=== PATIENT | male | born 1960 | race African-American/Black ===

== ENCOUNTER 2021-05-26 21:34 | Inpatient (IN) | payer MEDICAID, SELFPAY ==
--- NOTE | ~2021-05-26 | CT_ITS ---
EXAMINATION: CT CHEST WITHOUT CONTRAST CT ABDOMEN AND PELVIS WITHOUT CONTRAST CLINICAL INFORMATION: Shortness of breath. Abdominal discomfort. COMPARISON: No pertinent prior studies are available for comparison. TECHNIQUE: Multidetector volumetric imaging was performed from the thoracic inlet through the pubic symphysis without intravenous contrast. Sagittal and coronal images were reformatted. This CT examination was performed using dose optimization techniques as appropriate, variously including the following: *Automated exposure control *Adjustment of mA and/or kV according to patient size (this includes techniques or standardized protocols for targeted exams where dose is matched to indication/reason for exam; i.e. extremities or head) *Use of iterative reconstruction technique DOSE: 544 mGy-cm FINDINGS: -CHEST- LUNG: Interlobular septal thickening is evident throughout both lungs with an apical and basilar predominance, most consistent with interstitial edema. Subtle, patchy areas of groundglass attenuation throughout both lungs correlate with mild pulmonary edema. Central airways are clear. No dense airspace consolidation. No suspicious pulmonary nodules. There is a calcified granuloma in the left lower lobe. MEDIASTINUM: Heart is enlarged. Multiple calcified mediastinal lymph nodes are consistent with a history of granulomatous infection. Thyroid gland is normal. No adenopathy. PERICARDIUM/PLEURA: Trace right pleural effusion. No pneumothorax. CHEST WALL/AXILLA: Unremarkable. -ABDOMEN/PELVIS- LIVER, GALLBLADDER, BILIARY TREE: The liver is normal in size, shape, and attenuation. No focal hepatic lesion or biliary ductal dilatation is present. The gallbladder is unremarkable with no evidence of radiopaque gallstones, gallbladder wall thickening, or obvious pericholecystic inflammatory changes. PANCREAS: Normal; no mass or surrounding fluid. SPLEEN: Normal size. No focal lesion. ADRENAL GLANDS: Normal; no mass. KIDNEYS AND URETERS: The kidneys are normal in size, shape, and attenuation. No hydronephrosis, hydroureter, or calculi seen. No perinephric stranding. BLADDER: Mild bladder wall thickening. No calcifications or fat stranding. GASTROINTESTINAL TRACT: Stomach, small bowel, and colon are normal in caliber. No bowel wall thickening or surrounding inflammatory changes. Appendix is normal. No intraperitoneal free fluid or free air. ABDOMINAL WALL: No significant hernia is appreciated. VASCULATURE: Aorta is normal in size. No significant calcific atherosclerotic disease. LYMPH NODES: No lymphadenopathy. . PELVIC VISCERA: Prostate gland is enlarged, measuring 5 cm transverse. OSSEUS STRUCTURES: Multilevel degenerative disc disease most notable at L5-S1 with facet arthropathy. No fractures. No spondylolisthesis. Vertebral body heights are normal. There is moderate osteoarthritis in the right hip and more mild to moderate osteoarthritis the left hip. Ankylosis is evident at the right SI joint. CT/CT abdomen pelvis wo con IMPRESSION: 1. Cardiomegaly with pulmonary interstitial edema and a trace right pleural effusion, most consistent with CHF. 2. Prostatomegaly. Mild bladder wall thickening could be due to hypertrophy from chronic bladder obstruction or inflammation, as well as cystitis. Consider correlation with urinalysis. Otherwise, no acute intra-abdominal or intrapelvic abnormalities are identified.
--- NOTE | ~2021-05-26 | CT_ITS ---
PROCEDURE: CT-GUIDED BIOPSY, KIDNEY CLINICAL INFORMATION: Acute versus chronic kidney disease. Hypertension. COMPARISON: Previous CT of the abdomen and ultrasound of the kidneys May 2021. TECHNIQUE: Procedure and risks and benefits including bleeding, infection and injury to the kidney were discussed with the patient and informed consent was obtained. The patient was positioned in the prone position. The right flank was prepped and draped in the usual sterile fashion. The skin and soft tissues were anesthetized with 1% lidocaine plain. With CT guidance and a coaxial system, access to the lower pole of the right kidney was obtained. Two 18 gauge core biopsies were obtained. Patient received Versed 2 mg and fentanyl 100 mcg intravenously during the procedure. Total sedation time was [address] examination was performed using dose optimization techniques as appropriate, variously including the following: *Automated exposure control *Adjustment of mA and/or kV according to patient size (this includes techniques or standardized protocols for targeted exams where dose is matched to indication/reason for exam; i.e. extremities or head) *Use of iterative reconstruction technique DLP: 213 mGy-cm FINDINGS: Images demonstrate needle placement in the lower pole of the right kidney. There is a small perinephric hematoma that remained stable on serial images. CT/CT biopsy renal RT IMPRESSION: CT-guided right renal biopsy.
--- NOTE | ~2021-05-26 | US_ITS ---
EXAMINATION: US RENAL ARTERY DOPPLER CLINICAL INFORMATION: Renal artery stenosis. COMPARISON: CT chest, abdomen and pelvis on 05/27/2021. TECHNIQUE: Renal ultrasound. Doppler ultrasound (spectral analysis and color Doppler) of the renal arteries and aorta were performed. Examination is slightly limited as the patient is in ICU, unable to easily position and overlying bowel gas. FINDINGS: The right kidney measures 10.7 x 3.4 x 5.9 cm in sagittal, AP and transverse dimensions. The left kidney measures 9.1 x 4.6 x 5.6 cm in sagittal, AP and transverse dimensions. The kidneys show no masses, calculi or hydronephrosis. The corticomedullary differentiation is normal. RENAL ARTERY VELOCITIES: Right: Proximal: 56 cm/s. Mid: 57 cm/s. Distal: 52 cm/s. Left: Proximal: Not visualized due to bowel gas and patient positioning. Mid: 47 cm/s. Distal: 49 cm/s. SEGMENTAL RESISTIVE INDICES: Right: Upper: 0.8. Mid: 0.7. Lower: 0.7. Left: Upper: Not visualized due to bowel gas and patient positioning. Mid: 0.7. Lower: 0.8. Mid aortic velocity: 97 cm/s. Renal Aortic Ratio: Right: 0.6. Left: 0.5. US/US renal doppler IMPRESSION: 1. The kidneys are unremarkable in appearance. 2. There is no evidence of renal artery stenosis. 3. The proximal left renal artery is not well visualized.
--- NOTE | ~2021-05-26 | CT_ITS ---
EXAMINATION: CT ABDOMEN AND PELVIS WITHOUT CONTRAST CLINICAL INFORMATION: Hematocrit drop post renal biopsy. COMPARISON: Previous CT of the abdomen and pelvis 05/27/[address] biopsy 05/29/2021. TECHNIQUE: Multidetector volumetric imaging was performed from the superior aspect of the liver through the pubic symphysis. Sagittal and coronal reformatted images were obtained on the technologist's workstation. This CT examination was performed using dose optimization techniques as appropriate, variously including the following: *Automated exposure control *Adjustment of mA and/or kV according to patient size (this includes techniques or standardized protocols for targeted exams where dose is matched to indication/reason for exam; i.e. extremities or head) *Use of iterative reconstruction technique DLP: 379 mGy-cm FINDINGS: LUNG BASES: The heart is enlarged. There is bibasilar subsegmental atelectasis. There are small bilateral pleural effusions. There is a 5 mm calcified left lower lobe nodule. LIVER, GALLBLADDER, AND BILIARY TREE: The liver is normal in size, shape, and attenuation. No focal hepatic lesion or biliary ductal dilatation is present. The gallbladder is unremarkable with no evidence of radiopaque gallstones, gallbladder wall thickening, or obvious pericholecystic inflammatory changes. PANCREAS: Unremarkable. SPLEEN: Unremarkable. ADRENAL GLANDS: Unremarkable. KIDNEYS AND URETERS: There is new crescent-shaped high attenuation seen adjacent to the lateral lower pole of the right kidney suggestive of subcapsular hematoma. This measures 1 x 4 cm in transverse and AP dimension and approximately 5 cm in length. There is new heterogeneous high attenuation soft tissue in the right psoas and iliacus muscle and surrounding fat stranding that tracks into the pelvis suggestive of hematoma. This is difficult to define and measure but measures approximately 8 x 9 x 20 cm in transverse, AP and longitudinal dimensions. This deviates the bladder slightly to the left. There is a new small amount of ascites seen surrounding the inferior liver, hepatorenal space and in the pelvis. There are small low-attenuation lesions in the left kidney probably representing small cysts. BLADDER: Bladder is displaced to the right by the hematoma. GASTROINTESTINAL TRACT: The small and large bowel are unremarkable. The appendix is unremarkable. ABDOMINAL WALL: No significant hernia is appreciated. LYMPH NODES: Normal. VASCULAR: Unremarkable. PELVIC VISCERA: The prostate gland is slightly enlarged measuring 5 cm in AP and transverse dimension. OSSEOUS STRUCTURES: There are degenerative changes of the spine. CT/CT abdomen pelvis wo con IMPRESSION: Small right subcapsular hematoma and large perinephric hematoma involving the right iliopsoas muscle and tracking into the pelvis. New small amount of ascites in the abdomen and pelvis. Findings were communicated to Dr. Mullins by telephone on 05/30/2021 at 9:13 AM. Fleischner guidelines were followed.
[2021-05-26 21:46] VITALS: BP 250/155; PULSE 99; RESP 20; TEMP 37; O2SAT 100; BMI 20.7
--- NOTE | 2021-05-26 21:55 | ECG_ITS ---
Test Reason : HTN/ Chest pain Blood Pressure : / mmHG Vent. Rate : 096 BPM Atrial Rate : 096 BPM P-R Int : 178 ms QRS Dur : 082 ms QT Int : 408 ms P-R-T Axes : 072 012 180 degrees QTc Int : 515 ms Normal sinus rhythm Biatrial enlargement Left ventricular hypertrophy ( Sokolow-Recinos , [place] product , Romhilt-Baker ) ST & T wave abnormality, consider inferolateral ischemia Prolonged QT Abnormal ECG No previous ECGs available Referred By: Generic ED Physician Electronically Signed By:Jose L Mesa
[2021-05-26 22:35] LABS: Appearance Urine HAZY; Color Urine STRAW; Glucose Urine UA NEG (NEG); Leukocyte Esterase Urine NEG (NEG); Nitrite Urine NEG (NEG); Urine Blood 3+ (NEG); Urine Ketones NEG (NEG); Urine Protein 3+ MG/DL (NEG-TRACE)
[2021-05-26 22:42] VITALS: BP 248/148; PULSE 97; RESP 18
[2021-05-26 22:48] LABS: Bacteria Urine 1+ /LPF; Squamous Epithelial Cell Urine 1+ /LPF
[2021-05-26 22:51] LABS: Amphetamine Screen Urine Not Detected (Not Detect); Barbiturates, Urine Not Detected (Not Detect); Benzodiazepines Screen Urine Not Detected (Not Detect); Cannabinoid Screen Urine Not Detected (Not Detect); Cocaine Screen Urine Not Detected (Not Detect); Fentanyl, urine Not Detected (Not Detect); Opiate Screen Urine Not Detected (Not Detect); Phencyclidine Screen Urine Not Detected (Not Detect)
[2021-05-26] MEDS: LORazepam 1 MG TABLET PO (22:55)
[2021-05-26 22:58] LABS: COVID-19 Test Negative (Negative)
[2021-05-26 23:04] LABS: PLT CLUMP 1; Red Blood Count 3.17 X10*6/uL (4.60-5.80); SCAN SMEAR FLAG 1
[2021-05-26 23:05] LABS: Basophils Absolute Auto 0.1 X10*3/uL (0.0-0.2); Basophils Percent Auto 0.5 % (0-2); Eosinophils Absolute Auto 0.2 X10*3/uL (0.0-0.4); Eosinophils Percent Auto 1.6 % (0-4); Hematocrit 28.9 % (42.0-52.0); Imm Gran Abs Auto 0.05 X10*3/uL (0.00-0.03); Imm Gran Pct Auto 0.5 % (0.0-0.4); Lymphocytes Absolute Auto 1.5 X10*3/uL (1.2-4.9); Lymphocytes Percent Auto 14.5 % (20-40); Mean Corpuscular HGB Conc 34.6 g/dl (31.0-36.0); Mean Corpuscular Hemoglobin 31.5 pg (27.0-33.0); Mean Corpuscular Volume 91.2 fL (80.0-98.0); Mean Platelet Volume 11.4 fL (9.4-12.4); Monocytes Absolute Auto 0.6 X10*3/uL (0.1-1.2); Monocytes Percent Auto 5.4 % (2-11); Neutrophils Percent Auto 77.5 % (45-73)
[2021-05-26 23:12] LABS: Glucose, Whole Blood 115 mg/dL (60-115)
[2021-05-26 23:12] LABS: White Blood Count 10.4 X10*3/uL (4.8-10.8)
[2021-05-26 23:13] LABS: MANUAL DIFF FLAG NO; Platelet Count 119 X10*3/uL (160-400)
[2021-05-26 23:15] LABS: Ethanol < 10 mg/dL
[2021-05-26 23:17] LABS: Alanine Aminotransferase 27 U/L (0-40); Albumin Level 4.3 g/dL (3.5-5.0); Alkaline Phosphatase 53 U/L (39-117); Aspartate Amino Transferase 42 U/L (5-37); Bilirubin Direct 0.3 mg/dL (0.0-0.5); Bilirubin Total 0.9 mg/dL (0.0-1.0); Total Protein 7.3 g/dL (6.5-8.0)
[2021-05-26 23:18] LABS: Acetaminophen LAB 1 mcg/mL (<30); Salicylate < 5.0 mg/dL (15-30)
[2021-05-26 23:20] LABS: Anion Gap 20 (12-20); Blood Urea Nitrogen 56 mg/dL (9-16); Calcium 9.6 mg/dL (8.4-10.2); Carbon Dioxide 25 mmol/L (22-29); Chloride 92 mmol/L (96-108); Creatinine Clr Calc Pharmacy 10.8; Estimated Glomerular Filt Rate 9; Glucose Random 108 mg/dL (60-115); Potassium 3.6 mmol/L (3.3-5.1); Sodium 133 mmol/L (135-145)
--- NOTE | 2021-05-26 23:26 | ED_ITS ---
HPI - General Adult General Chief complaint: Anxiety Stated complaint: anxiety? Time Seen by Provider: 05/26/21 22:26 Source: patient Mode of arrival: ambulatory History of Present Illness HPI narrative: 61-year-old male who presents with having had ?stomach flu on Tuesday with multiple episodes of nausea and vomiting but denies any associated fever, chills, diarrhea and states that many of his coworkers had similar symptoms. Patient then states on Tuesday night he began feeling very anxious as though the ?valadez are closing in on me? and although he initially denied any chest pain/back pain/dizziness/headache/shortness of breath in the triage note he does describe chest tightness ?with his anxiety?. Patient states he has been unable to sleep for 3 days but then qualifies this during my interview by stating that at work ?I am fine? but then at home I can feel it starting again. Patient describes feeling depressed and initially described feelings of wanting to hurt himself but then denies those feelings currently and denies any homicidal ideation. Patient reports dry mouth and feelings of increased thirst. Patient denies any current chest pain, back pain, dizziness, headache, shortness of breath, nausea. Related Data Allergies Allergy/AdvReac Type Severity Reaction Status Date / Time No Known Allergies Allergy Verified 05/26/21 22:21 Review of Systems Review of Systems: Pertinent positives and negatives as stated in HPI 10 point review of systems is otherwise negative. [facility] Past Medical History Source: nursing notes reviewed Medical History No known health problems Social History Social History Advance Directives: No Advance Directives Information Provided: No Physical Exam ED Vital Signs: Vital Signs - 24 hr 05/26/21 21:46 05/26/21 22:42 05/26/21 23:42 Temperature 98.6 F Pulse Rate 99 97 93 Respiratory Rate 20 18 20 Blood Pressure 250/155 H 248/148 H 237/147 H Pulse Oximetry 100 05/26/21 23:51 05/27/21 00:36 05/27/21 00:49 Temperature Pulse Rate 84 79 76 Respiratory Rate 19 Blood Pressure 207/122 H 201/125 H 200/113 H Pulse Oximetry 91 L 95 05/27/21 00:56 05/27/21 00:59 05/27/21 01:38 Temperature Pulse Rate 81 82 78 Respiratory Rate 24 H Blood Pressure 195/121 H 195/121 H 182/138 H Pulse Oximetry 93 94 95 BMI result Body Mass Index 20.7 VITAL SIGNS: Reviewed. GENERAL: Well developed, well nourished, in no acute distress. HEAD: Normocephalic/atraumatic EYES: PERRLA, EOMI EARS: Ext canals without abnormality OROPHARYNX: no oral lesions noted, posterior pharynx clear LUNGS: Normal breath sounds. No adventitious sounds or accessory muscle use. SpO2<100> CARDIOVASCULAR: Regular rate and rhythm without noted murmurs ABDOMEN: Soft, non-tender, non-distended with bowel sounds. SKIN: Inspection of the skin reveals no rashes NEUROLOGIC: Alert and oriented x 4. Strength and sensation to light touch were grossly intact x 4, no facial asymmetry, no pronator drift, cranial nerves 2-12 grossly intact, no cerebellar deficits noted. Course Course Course Narrative: 61-year-old male with history and clinical presentation initially thought to be associated with substance use, all toxicology is return is negative, and review of EKG shows considerable EKG abnormalities, but suspect that the renal function and EKG findings are consistent chronic hypertension and not acute in nature given patient is asymptomatic. Review of all investigations most consistent with malignant hypertension with CALVIN, and subsequent CHF. This is likely contributing to patient's feelings of anxiety. Patient has received labetalol, hydralazine, Lasix and this case was discussed with the inpatient hospitalist who accepts admission. 0203: I discussed the case with Dr. Worthington as patient was noted to have increasing blood pressure once again and will place patient on a nitro drip and admit to the ICU. Reevaluation(s) Reevaluation #1: Discussed the case with Cardiology. Time: 23:43 Medical Decision Making Lab Data Result diagrams: 05/26/21 22:45 05/26/21 22:45 Labs: Lab Results 05/26/21 05/26/21 05/26/21 Range/Units 22:25 22:25 22:25 WBC (4.8-10.8) X10*3/uL RBC (4.60-5.80) X10*6/uL Hgb (14.0-18.0) g/dl Hct (42.0-52.0) % MCV (80.0-98.0) fL MCH (27.0-33.0) pg MCHC (31.0-36.0) g/dl RDW (11.0-16.0) % Plt Count (160-400) X10*3/uL MPV (9.4-12.4) fL Immature Gran % (Auto) (0.0-0.4) % Neut % (Auto) (45-73) % Lymph % (Auto) (20-40) % Sullivan % (Auto) (2-11) % Eos % (Auto) (0-4) % Baso % (Auto) (0-2) % Lymph # (Auto) (1.2-4.9) X10*3/uL Sullivan # (Auto) (0.1-1.2) X10*3/uL Eos # (Auto) (0.0-0.4) X10*3/uL Baso # (Auto) (0.0-0.2) X10*3/uL Abs Immat Gran (auto) (0.00-0.03) X10*3/uL Absolute Neuts (auto) (2.0-8.3) x10*3/uL Absolute Nucleated RBC (0.0-0.012) X10*3/uL Nucleated RBC % (auto) (0.0-0.2) /100WBC D-Dimer High Sensitivty NG/ML Sodium (135-145) mmol/L Potassium (3.3-5.1) mmol/L Chloride (96-108) mmol/L Carbon Dioxide (22-29) mmol/L Anion Gap (12-20) BUN (9-16) mg/dL Creatinine (0.5-1.4) mg/dL Estim Creat Clear Calc Estimated GFR POC Glucose (60-115) mg/dL Random Glucose (60-115) mg/dL Calcium (8.4-10.2) mg/dL Total Bilirubin (0.0-1.0) mg/dL Direct Bilirubin (0.0-0.5) mg/dL AST (5-37) U/L ALT (0-40) U/L Alkaline Phosphatase (39-117) U/L Troponin I High Sens (<3.5-35.0) ng/L Total Protein (6.5-8.0) g/dL Albumin (3.5-5.0) g/dL TSH (0.32-4.0) uIU/mL Urine Color STRAW Urine Appearance HAZY Urine pH 7.0 (5.0-8.0) Ur Specific [place] 1.020 (1.005-1.025) Urine Protein 3+ H (NEG-TRACE) MG/DL Urine Glucose (UA) NEG (NEG) MG/DL Urine Ketones NEG (NEG) MG/DL Urine Blood 3+ H (NEG) Urine Nitrite NEG (NEG) Ur Leukocyte Esterase NEG (NEG) Urine RBC 76-150 H (0) /HPF Urine WBC 1-4 (0-4) /HPF Ur Squamous Epith Cells 1+ /LPF Urine Bacteria 1+ /LPF Salicylates (15-30) mg/dL Urine Opiates Screen Not Detected (Not Detect) Urine Fentanyl Screen Not Detected (Not Detect) Acetaminophen (<30) mcg/mL Ur Barbiturates Screen Not Detected (Not Detect) Ur Phencyclidine Scrn Not Detected (Not Detect) Ur Amphetamines Screen Not Detected (Not Detect) U Benzodiazepines Scrn Not Detected (Not Detect) Urine Cocaine Screen Not Detected (Not Detect) U Marijuana (THC) Screen Not Detected (Not Detect) Ethyl Alcohol mg/dL COVID-19 (RUDI) Negative (Negative) COVID-19 Clin Com See Note 05/26/21 05/26/21 05/26/21 Range/Units 22:45 22:45 22:45 WBC 10.4 (4.8-10.8) X10*3/uL RBC 3.17 L (4.60-5.80) X10*6/uL Hgb 10.0 L (14.0-18.0) g/dl Hct 28.9 L (42.0-52.0) % MCV 91.2 (80.0-98.0) fL MCH 31.5 (27.0-33.0) pg MCHC 34.6 (31.0-36.0) g/dl RDW 15.0 (11.0-16.0) % Plt Count 119 L (160-400) X10*3/uL MPV 11.4 (9.4-12.4) fL Immature Gran % (Auto) 0.5 H (0.0-0.4) % Neut % (Auto) 77.5 H (45-73) % Lymph % (Auto) 14.5 L (20-40) % Sullivan % (Auto) 5.4 (2-11) % Eos % (Auto) 1.6 (0-4) % Baso % (Auto) 0.5 (0-2) % Lymph # (Auto) 1.5 (1.2-4.9) X10*3/uL Sullivan # (Auto) 0.6 (0.1-1.2) X10*3/uL Eos # (Auto) 0.2 (0.0-0.4) X10*3/uL Baso # (Auto) 0.1 (0.0-0.2) X10*3/uL Abs Immat Gran (auto) 0.05 H (0.00-0.03) X10*3/uL Absolute Neuts (auto) 8.0 (2.0-8.3) x10*3/uL Absolute Nucleated RBC 0.000 (0.0-0.012) X10*3/uL Nucleated RBC % (auto) 0.0 (0.0-0.2) /100WBC D-Dimer High Sensitivty NG/ML Sodium 133 L (135-145) mmol/L Potassium 3.6 (3.3-5.1) mmol/L Chloride 92 L (96-108) mmol/L Carbon Dioxide 25 (22-29) mmol/L Anion Gap 20 (12-20) BUN 56 H (9-16) mg/dL Creatinine 6.21 H* (0.5-1.4) mg/dL Estim Creat Clear Calc 10.8 Estimated GFR 9 POC Glucose (60-115) mg/dL Random Glucose 108 (60-115) mg/dL Calcium 9.6 (8.4-10.2) mg/dL Total Bilirubin (0.0-1.0) mg/dL Direct Bilirubin (0.0-0.5) mg/dL AST (5-37) U/L ALT (0-40) U/L Alkaline Phosphatase (39-117) U/L Troponin I High Sens (<3.5-35.0) ng/L Total Protein (6.5-8.0) g/dL Albumin (3.5-5.0) g/dL TSH (0.32-4.0) uIU/mL Urine Color Urine Appearance Urine pH (5.0-8.0) Ur Specific [place] (1.005-1.025) Urine Protein (NEG-TRACE) MG/DL Urine Glucose (UA) (NEG) MG/DL Urine Ketones (NEG) MG/DL Urine Blood (NEG) Urine Nitrite (NEG) Ur Leukocyte Esterase (NEG) Urine RBC (0) /HPF Urine WBC (0-4) /HPF Ur Squamous Epith Cells /LPF Urine Bacteria /LPF Salicylates < 5.0 L (15-30) mg/dL Urine Opiates Screen (Not Detect) Urine Fentanyl Screen (Not Detect) Acetaminophen 1 (<30) mcg/mL Ur Barbiturates Screen (Not Detect) Ur Phencyclidine Scrn (Not Detect) Ur Amphetamines Screen (Not Detect) U Benzodiazepines Scrn (Not Detect) Urine Cocaine Screen (Not Detect) U Marijuana (THC) Screen (Not Detect) Ethyl Alcohol mg/dL COVID-19 (RUDI) (Negative) COVID-19 Clin Com 05/26/21 05/26/21 05/26/21 Range/Units 22:45 22:46 22:57 WBC (4.8-10.8) X10*3/uL RBC (4.60-5.80) X10*6/uL Hgb (14.0-18.0) g/dl Hct (42.0-52.0) % MCV (80.0-98.0) fL MCH (27.0-33.0) pg MCHC (31.0-36.0) g/dl RDW (11.0-16.0) % Plt Count (160-400) X10*3/uL MPV (9.4-12.4) fL Immature Gran % (Auto) (0.0-0.4) % Neut % (Auto) (45-73) % Lymph % (Auto) (20-40) % Sullivan % (Auto) (2-11) % Eos % (Auto) (0-4) % Baso % (Auto) (0-2) % Lymph # (Auto) (1.2-4.9) X10*3/uL Sullivan # (Auto) (0.1-1.2) X10*3/uL Eos # (Auto) (0.0-0.4) X10*3/uL Baso # (Auto) (0.0-0.2) X10*3/uL Abs Immat Gran (auto) (0.00-0.03) X10*3/uL Absolute Neuts (auto) (2.0-8.3) x10*3/uL Absolute Nucleated RBC (0.0-0.012) X10*3/uL Nucleated RBC % (auto) (0.0-0.2) /100WBC D-Dimer High Sensitivty NG/ML Sodium (135-145) mmol/L Potassium (3.3-5.1) mmol/L Chloride (96-108) mmol/L Carbon Dioxide (22-29) mmol/L Anion Gap (12-20) BUN (9-16) mg/dL Creatinine (0.5-1.4) mg/dL Estim Creat Clear Calc Estimated GFR POC Glucose (60-115) mg/dL Random Glucose (60-115) mg/dL Calcium (8.4-10.2) mg/dL Total Bilirubin 0.9 (0.0-1.0) mg/dL Direct Bilirubin 0.3 (0.0-0.5) mg/dL AST 42 H (5-37) U/L ALT 27 (0-40) U/L Alkaline Phosphatase 53 (39-117) U/L Troponin I High Sens 236.2 H* (<3.5-35.0) ng/L Total Protein 7.3 (6.5-8.0) g/dL Albumin 4.3 (3.5-5.0) g/dL TSH 0.96 (0.32-4.0) uIU/mL Urine Color Urine Appearance Urine pH (5.0-8.0) Ur Specific [place] (1.005-1.025) Urine Protein (NEG-TRACE) MG/DL Urine Glucose (UA) (NEG) MG/DL Urine Ketones (NEG) MG/DL Urine Blood (NEG) Urine Nitrite (NEG) Ur Leukocyte Esterase (NEG) Urine RBC (0) /HPF Urine WBC (0-4) /HPF Ur Squamous Epith Cells /LPF Urine Bacteria /LPF Salicylates (15-30) mg/dL Urine Opiates Screen (Not Detect) Urine Fentanyl Screen (Not Detect) Acetaminophen (<30) mcg/mL Ur Barbiturates Screen (Not Detect) Ur Phencyclidine Scrn (Not Detect) Ur Amphetamines Screen (Not Detect) U Benzodiazepines Scrn (Not Detect) Urine Cocaine Screen (Not Detect) U Marijuana (THC) Screen (Not Detect) Ethyl Alcohol < 10 mg/dL COVID-19 (RUDI) (Negative) COVID-19 Clin Com 05/26/21 05/26/21 Range/Units 23:08 23:45 WBC (4.8-10.8) X10*3/uL RBC (4.60-5.80) X10*6/uL Hgb (14.0-18.0) g/dl Hct (42.0-52.0) % MCV (80.0-98.0) fL MCH (27.0-33.0) pg MCHC (31.0-36.0) g/dl RDW (11.0-16.0) % Plt Count (160-400) X10*3/uL MPV (9.4-12.4) fL Immature Gran % (Auto) (0.0-0.4) % Neut % (Auto) (45-73) % Lymph % (Auto) (20-40) % Sullivan % (Auto) (2-11) % Eos % (Auto) (0-4) % Baso % (Auto) (0-2) % Lymph # (Auto) (1.2-4.9) X10*3/uL Sullivan # (Auto) (0.1-1.2) X10*3/uL Eos # (Auto) (0.0-0.4) X10*3/uL Baso # (Auto) (0.0-0.2) X10*3/uL Abs Immat Gran (auto) (0.00-0.03) X10*3/uL Absolute Neuts (auto) (2.0-8.3) x10*3/uL Absolute Nucleated RBC (0.0-0.012) X10*3/uL Nucleated RBC % (auto) (0.0-0.2) /100WBC D-Dimer High Sensitivty 463 NG/ML Sodium (135-145) mmol/L Potassium (3.3-5.1) mmol/L Chloride (96-108) mmol/L Carbon Dioxide (22-29) mmol/L Anion Gap (12-20) BUN (9-16) mg/dL Creatinine (0.5-1.4) mg/dL Estim Creat Clear Calc Estimated GFR POC Glucose 115 (60-115) mg/dL Random Glucose (60-115) mg/dL Calcium (8.4-10.2) mg/dL Total Bilirubin (0.0-1.0) mg/dL Direct Bilirubin (0.0-0.5) mg/dL AST (5-37) U/L ALT (0-40) U/L Alkaline Phosphatase (39-117) U/L Troponin I High Sens (<3.5-35.0) ng/L Total Protein (6.5-8.0) g/dL Albumin (3.5-5.0) g/dL TSH (0.32-4.0) uIU/mL Urine Color Urine Appearance Urine pH (5.0-8.0) Ur Specific [place] (1.005-1.025) Urine Protein (NEG-TRACE) MG/DL Urine Glucose (UA) (NEG) MG/DL Urine Ketones (NEG) MG/DL Urine Blood (NEG) Urine Nitrite (NEG) Ur Leukocyte Esterase (NEG) Urine RBC (0) /HPF Urine WBC (0-4) /HPF Ur Squamous Epith Cells /LPF Urine Bacteria /LPF Salicylates (15-30) mg/dL Urine Opiates Screen (Not Detect) Urine Fentanyl Screen (Not Detect) Acetaminophen (<30) mcg/mL Ur Barbiturates Screen (Not Detect) Ur Phencyclidine Scrn (Not Detect) Ur Amphetamines Screen (Not Detect) U Benzodiazepines Scrn (Not Detect) Urine Cocaine Screen (Not Detect) U Marijuana (THC) Screen (Not Detect) Ethyl Alcohol mg/dL COVID-19 (RUDI) (Negative) COVID-19 Clin Com Critical Care Time Critical Care Time Critical Care Time: Yes Total Critical Care Time: 30 Attestation: I personally attest to this time spent taking care of the patient. Discharge Plan Discharge Clinical Impression: Malignant hypertension, CALVIN (acute kidney injury), CHF (congestive heart failure), Anxiety Patient Disposition: Admitted As Inpatient
[2021-05-26 23:38] LABS: TSH reflex Free T4 0.96 uIU/mL (0.32-4.0)
[2021-05-26 23:42] VITALS: BP 237/147; PULSE 93; RESP 20
[2021-05-26] MEDS: Labetalol HCL 100 MG/20 ML VIAL IVPUSH (23:43)
[2021-05-26 23:51] VITALS: BP 207/122; PULSE 84
[2021-05-26 23:58] LABS: Troponin-I High Sensitivity 236.2 ng/L (<3.5-35.0)
[2021-05-27] VITALS (46 sets, daily range): BP systolic 132–239; BP diastolic 73–143; PULSE 76–111; RESP 13–32; TEMP 36.8–37.6; O2SAT 91–100; BMI 20.5; BMI 20.7
[2021-05-27 00:17] LABS: D Dimer High Sensitivity 463 NG/ML
[2021-05-27] MEDS: Labetalol HCL 100 MG/20 ML VIAL 10 MG IVPUSH (00:25)
[2021-05-27] MEDS: hydrALAZINE HCl 20 MG/ML VIAL 10 MG IVPUSH (00:52)
[2021-05-27] MEDS: diphenhydrAMINE HCL 50 MG/ML VIAL 25 MG IVPUSH (01:08)
[2021-05-27] MEDS: Furosemide 100 MG/10 ML VIAL 60 MG IVPUSH (01:37)
[2021-05-27 02:02] LABS: Troponin-I High Sensitivity 193.4 ng/L (<3.5-35.0)
--- NOTE | 2021-05-27 02:15 | PC.NURSE ---
2343 Pt moved over from the pod for elevated BP Pt SBP >200s and DBP > 100 O2 88-89% on RA. Pt placed on 2L NC with O2 up to 93-94% 0001 Dr. Reynaga at bedside to perfome US [address] with monitor and this RN 0053 Pt back in room 2nd dose labetalol administered Pt developed anxiety from CT scan Pt asking to sit up on side of bed. Pt asking to remove NC. Explaiend to pt that O2 sat drops without oxygen. Pt verbalized understanding 0103 Pt continious to have intermitten panic attacks Dr. Reynaga made aware. Awaiting orders 0110 Pt medicated with benadryl Will continue to monitor
[2021-05-27] MEDS: Nitroglycerin/D5W 100 MG/250 ML INFUS..BTL IVCONT (02:17)
--- NOTE | 2021-05-27 02:25 | PC.NURSE ---
Pt resting on stretcher on monitors Nitro drip started Pt tolerating well ICU PA at bedside Pt continous to have intermittent panic attacks
[2021-05-27] MEDS: LORazepam 2 MG/ML VIAL 0.5 MG IVPUSH (03:05)
[2021-05-27] MEDS: Nitroglycerin/D5W 100 MG/250 ML INFUS..BTL 12 MG IVCONT (03:11)
--- NOTE | 2021-05-27 03:14 | P.HPCC_ITS ---
History of Present Illness Date of Service: 05/27/21 Attending physician on admission: Rahul Worthington Chief Complaint: anxiety This is a 61-year-old male with history of tobacco use and alcohol use (last drink 3 weeks ago)? with no other? known past medical history, and to the emergency room? with anxiety. ? Patient reported? on Tuesday he had ?stomach flu? with multiple episodes of nausea and vomiting.? He states since Tuesday he has felt his anxiety getting worse, with ?valadez closing in?.? In the ED,? the patient was noted to be severely hypertensive,? BP 250/155.? He denied chest pain, palpitation, dizziness, headache.? Laboratory data was significant for? sodium 133, chloride 92, BUN 56, creatinine 6.21,? troponin 236 Toxicology was negative Imaging:? ?Chest CT: ?Cardiomegaly with pulmonary interstitial edema? ED course:? ED physician discussed with cardiology her findings from bedside echo, significant thickening of LV, as well as EKG abnormalities, cardiology does not believe to be acute. Recommends blood pressure management.? Patient received [id number], hydralazine 10, Lasix 60, ativan 1 po, and benadryl while in ED. Patient blood pressure cont to be elevated >200s. Required Nitro drip initiation? ? Patient will be admitted to the ICU for management of hypertensive emergency Review of Systems Constitutional: Constitutional: Reports as per HPI and Denies weakness Eyes: Eyes: Denies diplopia and Denies loss of vision Cardiovascular: Cardiovascular: Reports as per HPI and Denies dyspnea Respiratory: Respiratory: Denies chest congestion, Denies cough and Denies dyspnea Gastrointestinal: Gastrointestinal: Reports as per HPI Musculoskeletal: Musculoskeletal: Denies myalgias Neurologic: Denies loss of vision and Denies weakness Psychiatric: Psychiatric: Reports as per HPI PMFSH Past Medical History Medical History No known health problems Social History Social History Advance Directives: No Advance Directives Information Provided: No Meds Allergies Allergy/AdvReac Type Severity Reaction Status Date / Time No Known Allergies Allergy Verified 05/26/21 22:21 Active Medications: Current Medications Heparin Sodium (Porcine) (Heparin Sodium,Porcine 5,000 Unit/Ml Vial) 5,000 unit SUBCUT TID [facility] Nitroglycerin/Dextrose () 100 mg in 250 mls @ 0 mls/hr IVCONT .Q0M [facility]; Protocol Last Admin: 05/27/21 03:11 Dose: 80 mcg/min, 12 mls/hr Documented by: Physical Exam Vital Signs: Vital Signs: Last Vital Signs Temp 98.6 F 05/27/21 02:51 Pulse 90 05/27/21 03:11 Resp 32 H 05/27/21 02:51 BP 220/115 H 05/27/21 03:11 Pulse Ox 93 05/27/21 02:51 BMI result Body Mass Index 20.5 Constitutional: Alert, does appear anxious . Mental Status: Oriented to person, place and time. Head: Normocephalic. Eyes: Pupils are equal, round and reactive to light. Extraocular muscles intact. Ear, Nose and Throat: Oropharynx clear, mucous membranes moist. Ears and nose without masses, lesions or deformities. Trachea midline. Neck: Supple, Full range of motion. Respiratory: Rhonchi throughout all lung ponce.? Cardiovascular: Sinus. S1 S2 regular. Gastrointestinal: Abdomen soft, non-tender, non-distended. Normal bowel sounds. No pulsatile mass. No hepatosplenomegaly. Neurologic: No focal neurological deficits. Moves all extremities spontaneously. Sensation intact bilaterally. Skin: No rashes or lesions. No petechiae or purpura. Psychiatric: Anxious Results Labs CBC and Chem 7: 05/26/21 22:45 05/26/21 22:45 Labs: Laboratory Results - last 24 hr 05/26/21 05/26/21 05/26/21 22:25 22:25 22:25 MCV MCH MCHC RDW Plt Count MPV Immature Gran % (Auto) Neut % (Auto) Lymph % (Auto) Linn % (Auto) Eos % (Auto) Baso % (Auto) Lymph # (Auto) Linn # (Auto) Eos # (Auto) Baso # (Auto) Abs Immat Gran (auto) Absolute Neuts (auto) Absolute Nucleated RBC Nucleated RBC % (auto) D-Dimer High Sensitivty Anion Gap Estim Creat Clear Calc Estimated GFR POC Glucose Random Glucose Calcium Total Bilirubin Direct Bilirubin AST ALT Alkaline Phosphatase Total Protein Albumin TSH Urine Color STRAW Urine Appearance HAZY Urine pH 7.0 Ur Specific Carville 1.020 Urine Protein 3+ H Urine Glucose (UA) NEG Urine Ketones NEG Urine Blood 3+ H Urine Nitrite NEG Ur Leukocyte Esterase NEG Urine RBC 76-150 H Urine WBC 1-4 Ur Squamous Epith Cells 1+ Urine Bacteria 1+ Salicylates Urine Opiates Screen Not Detected Urine Fentanyl Screen Not Detected Acetaminophen Ur Barbiturates Screen Not Detected Ur Phencyclidine Scrn Not Detected Ur Amphetamines Screen Not Detected U Benzodiazepines Scrn Not Detected Urine Cocaine Screen Not Detected U Marijuana (THC) Screen Not Detected Ethyl Alcohol COVID-19 (RUDI) Negative [employer] See Note 05/26/21 05/26/21 05/26/21 22:45 22:45 22:45 MCV 91.2 MCH 31.5 MCHC 34.6 RDW 15.0 Plt Count 119 L MPV 11.4 Immature Gran % (Auto) 0.5 H Neut % (Auto) 77.5 H Lymph % (Auto) 14.5 L Linn % (Auto) 5.4 Eos % (Auto) 1.6 Baso % (Auto) 0.5 Lymph # (Auto) 1.5 Linn # (Auto) 0.6 Eos # (Auto) 0.2 Baso # (Auto) 0.1 Abs Immat Gran (auto) 0.05 H Absolute Neuts (auto) 8.0 Absolute Nucleated RBC 0.000 Nucleated RBC % (auto) 0.0 D-Dimer High Sensitivty Anion Gap 20 Estim Creat Clear Calc 10.8 Estimated GFR 9 POC Glucose Random Glucose 108 Calcium 9.6 Total Bilirubin Direct Bilirubin AST ALT Alkaline Phosphatase Total Protein Albumin TSH Urine Color Urine Appearance Urine pH Ur Specific Carville Urine Protein Urine Glucose (UA) Urine Ketones Urine Blood Urine Nitrite Ur Leukocyte Esterase Urine RBC Urine WBC Ur Squamous Epith Cells Urine Bacteria Salicylates < 5.0 L Urine Opiates Screen Urine Fentanyl Screen Acetaminophen 1 Ur Barbiturates Screen Ur Phencyclidine Scrn Ur Amphetamines Screen U Benzodiazepines Scrn Urine Cocaine Screen U Marijuana (THC) Screen Ethyl Alcohol COVID-19 (RUDI) COVID-AB [employer] 05/26/21 05/26/21 05/26/21 22:46 22:57 23:08 MCV MCH MCHC RDW Plt Count MPV Immature Gran % (Auto) Neut % (Auto) Lymph % (Auto) Linn % (Auto) Eos % (Auto) Baso % (Auto) Lymph # (Auto) Linn # (Auto) Eos # (Auto) Baso # (Auto) Abs Immat Gran (auto) Absolute Neuts (auto) Absolute Nucleated RBC Nucleated RBC % (auto) D-Dimer High Sensitivty Anion Gap Estim Creat Clear Calc Estimated GFR POC Glucose 115 Random Glucose Calcium Total Bilirubin 0.9 Direct Bilirubin 0.3 AST 42 H ALT 27 Alkaline Phosphatase 53 Total Protein 7.3 Albumin 4.3 TSH 0.96 Urine Color Urine Appearance Urine pH Ur Specific Carville Urine Protein Urine Glucose (UA) Urine Ketones Urine Blood Urine Nitrite Ur Leukocyte Esterase Urine RBC Urine WBC Ur Squamous Epith Cells Urine Bacteria Salicylates Urine Opiates Screen Urine Fentanyl Screen Acetaminophen Ur Barbiturates Screen Ur Phencyclidine Scrn Ur Amphetamines Screen U Benzodiazepines Scrn Urine Cocaine Screen U Marijuana (THC) Screen Ethyl Alcohol < 10 COVID-19 (RUDI) COVID-19 [employer] 05/26/21 23:45 MCV MCH MCHC RDW Plt Count MPV Immature Gran % (Auto) Neut % (Auto) Lymph % (Auto) Linn % (Auto) Eos % (Auto) Baso % (Auto) Lymph # (Auto) Linn # (Auto) Eos # (Auto) Baso # (Auto) Abs Immat Gran (auto) Absolute Neuts (auto) Absolute Nucleated RBC Nucleated RBC % (auto) D-Dimer High Sensitivty 463 Anion Gap Estim Creat Clear Calc Estimated GFR POC Glucose Random Glucose Calcium Total Bilirubin Direct Bilirubin AST ALT Alkaline Phosphatase Total Protein Albumin TSH Urine Color Urine Appearance Urine pH Ur Specific Carville Urine Protein Urine Glucose (UA) Urine Ketones Urine Blood Urine Nitrite Ur Leukocyte Esterase Urine RBC Urine WBC Ur Squamous Epith Cells Urine Bacteria Salicylates Urine Opiates Screen Urine Fentanyl Screen Acetaminophen Ur Barbiturates Screen Ur Phencyclidine Scrn Ur Amphetamines Screen U Benzodiazepines Scrn Urine Cocaine Screen U Marijuana (THC) Screen Ethyl Alcohol COVID-19 (RUDI) COVID-19 Clin Com Imaging Radiologist's Impressions: Impressions Abdomen/Pelvis CT 05/27/21 00:30 IMPRESSION: 1. Cardiomegaly with pulmonary interstitial edema and a trace right pleural effusion, most consistent with CHF. 2. Prostatomegaly. Mild bladder wall thickening could be due to hypertrophy from chronic bladder obstruction or inflammation, as well as cystitis. Consider correlation with urinalysis. Otherwise, no acute intra-abdominal or intrapelvic abnormalities are identified. Chest CT 05/27/21 00:30 IMPRESSION: 1. Cardiomegaly with pulmonary interstitial edema and a trace right pleural effusion, most consistent with CHF. 2. Prostatomegaly. Mild bladder wall thickening could be due to hypertrophy from chronic bladder obstruction or inflammation, as well as cystitis. Consider correlation with urinalysis. Otherwise, no acute intra-abdominal or intrapelvic abnormalities are identified. Assessment and Plan (1) Hypertensive emergency: Status: Acute (2) Malignant hypertension: Status: Acute (3) CALVIN (acute kidney injury): Status: Acute (4) CHF (congestive heart failure): Status: Acute (5) Anxiety: Status: Acute Plan 61-year-old male with? history of tobacco use and EtOH? and no other past medical history? admitted for emergency Neuro:? ?Anxiety:? patient states he has had panic attacks in the past,? but they have never lasted this long.? He does not see a doctor.? Received Ativan in the ED with some affect.? Continue to monitor for worsening? anxiety Cardiac:??? Hypertensive Emergency/malignant hypertension-? patient denies any previous history of hypertension diagnosis,? but states he has not seen a doctor since 2000.? He does report on and off headaches in the past few months.? Hypertensive emergencies likely from an undiagnosed hypertension.? Patient was started on nitro drip. SBP goal <180. Official Cardiology and Echo in the am. Congestive heart failure:? patient with significant pulmonary edema in Chest CT.? was is likely to undiagnosed hypertension. ? Troponin trending down 236 to 193. Received Lasix in the ED? and is on nitro.? Will continue to closely monitor.? The cardiology an echo in the morning.? Pulmonary:? No acute issues Renal:? ?Acute Kidney injury-? creatinine is 6.21,? nonoliguric. ? Potassium is 3.6, ? does not require emergent dialysis at this time. This is likely a mix from hypertensive emergency and congestive heart failure exacerbation. Will continue to trend renal indices and consider renal consult in the morning ID: No acute issues.?? GI:? No acute issues.?? Heme/Onc:? No acute issues. Psych: ? patient admits to drinking,? states he quit 3 weeks ago and confirmed with .? Do not think alcohol withdrawal is likely.? Miscellaneous:? No acute issues. ?Prophylaxis: ? subcu heparin, ? does not require GI prophylaxis Diet: ? Cardiac diet CODE: FULL code Critical care time:? x 60 minutes Case discussed with attending Dr Worthington Critical Care Time Critical Care Time (minutes): 60
--- NOTE | 2021-05-27 04:14 | PC.NURSE ---
Addendum entered by Aaron Ruiz RN 05/27/21 06:21: CURRWNT BP= 192/113 NITRO DRIP 160 MCG/MIN...ICU WEIGHT TRAINER AWARE...TO MAINTAIN NITRO AT CURRENT RATE FOR NOW..DOZING..AWAKENED...DENIES DISCOMFORT..DENIES URGE TO VOI Original Note: ADMIT TO 253-1 APPROX 1AM...AWAKE..ALERT..ORIENTED X3..EPISODIC PERIODS OF ANXIETY/PANIC ATTACKS...LUNGS FINE DIFFUSE CRACKLES...MILD KOLB...DENIES CHEST PAIN...O2 PLACED 4 L/M...SAO2 92% ROOM AIR...96% WITH 4 L/M...IV NTG DRIP 20 MCG/MIN AT ARRIVAL...BP 229/130...ICU WEIGHT TRAINER PRESENT...SBP GOAL 160-180...NTG GRADUALLY TITRATED TO 100 MCG/MIN...CURRENT BP 174/111...WEIGHT TRAINER AWARE OF DBP...PREVIOUSLY RECEIVED ATIVAN 0.5 MG IV X1 FOR ANXIETY/PANIC ATTACKS...CURRENTLY DOZING...NSR HR 84-86..NO ECTOPY..
[2021-05-27 05:38] LABS: MANUAL DIFF FLAG NO
[2021-05-27 05:41] LABS: Basophils Percent Auto 0.3 % (0-2); Eosinophils Percent Auto 0.4 % (0-4); Hematocrit 27.2 % (42.0-52.0); Hemoglobin 9.4 g/dl (14.0-18.0); Imm Gran Abs Auto 0.04 X10*3/uL (0.00-0.03); Imm Gran Pct Auto 0.4 % (0.0-0.4); Lymphocytes Percent Auto 10.9 % (20-40); Mean Corpuscular HGB Conc 34.6 g/dl (31.0-36.0); Mean Corpuscular Hemoglobin 31.6 pg (27.0-33.0); Mean Corpuscular Volume 91.6 fL (80.0-98.0); Monocytes Absolute Auto 0.3 X10*3/uL (0.1-1.2); Monocytes Percent Auto 3.5 % (2-11); Neutrophils Absolute Auto 7.9 x10*3/uL (2.0-8.3); Neutrophils Percent Auto 84.5 % (45-73); Platelet Count 124 X10*3/uL (160-400); Red Blood Count 2.97 X10*6/uL (4.60-5.80); Red Cell Distribution Width 15.1 % (11.0-16.0); White Blood Count 9.4 X10*3/uL (4.8-10.8)
[2021-05-27 06:02] LABS: Alanine Aminotransferase 26 U/L (0-40); Albumin Level 3.9 g/dL (3.5-5.0); Alkaline Phosphatase 47 U/L (39-117); Anion Gap 18 (12-20); Aspartate Amino Transferase 34 U/L (5-37); Blood Urea Nitrogen 61 mg/dL (9-16); Calcium 9.3 mg/dL (8.4-10.2); Carbon Dioxide 24 mmol/L (22-29); Chloride 94 mmol/L (96-108); Creatinine Clr Calc Pharmacy 10.7; Estimated Glomerular Filt Rate 9; Glucose Random 113 mg/dL (60-115); Magnesium 2.7 mg/dL (1.6-2.6); Phosphorus 4.6 mg/dL (2.7-4.5); Potassium 3.1 mmol/L (3.3-5.1); Sodium 133 mmol/L (135-145); Total Protein 6.7 g/dL (6.5-8.0)
[2021-05-27] MEDS: Heparin Sodium,Porcine 5,000 UNIT/ML VIAL 5000 UNIT SUBCUT ×3 (07:30→21:49)
[2021-05-27] MEDS: Potassium Chloride Packet 20 MEQ PACKET 60 MEQ PO (07:30)
--- NOTE | 2021-05-27 08:00 | CA_ITS ---
Transthoracic Echocardiogram Patient (Last, First, Middle): David Amaral, Gender: Male Date of : 1960 Age: 61 Procedure Date: 05/27/2021 Procedure Type: Transthoracic Echocardiogram Location: ICU Height: 170.18 cm Weight: 59.88 kg BSA: 1.69 m2 Heart Rate: bpm BP: 192 / 132 mmHg Cover Stitch Machine Operator: Referring MD: Kathy Thomas NP Symptoms: HTN emergency Study Quality: Fair ECG Rhythm: Sinus Conclusions: - Normal left ventricular size and systolic function. There is severely increased left ventricular wall thickness. The visually estimated ejection fraction is between 60-65%. - E/E prime ratio is >15, consistent with elevated filling pressures. - Normal right ventricular cavity size and systolic function. - The left atrium is moderately dilated. Findings Left Ventricle Normal left ventricular size and systolic function. There is severely increased left ventricular wall thickness. The visually estimated ejection fraction is between 60-65%. There is no evidence of regional wall motion abnormalities. Abnormal diastolic function is noted. Spectral Doppler is indicative of a pseudonormal filling pattern. E/E prime ratio is >15, consistent with elevated filling pressures. Right Ventricle Normal right ventricular cavity size and systolic function. Atria The left atrium is moderately dilated. Aortic Valve There is a normal trileaflet aortic valve. There is no aortic valve stenosis. There is no aortic valve regurgitation. Mitral Valve The mitral valve appears normal. There is mild mitral valve regurgitation. There is no mitral valve stenosis. Pulmonic Valve Normal pulmonic valve structure and function. There is trace pulmonic valve regurgitation. Tricuspid Valve Normal tricuspid valve structure. There is trace tricuspid valve regurgitation. Normal right atrial pressure. There is no evidence of pulmonary hypertension. Great Vessels All visible segments of the aorta are normal in size. The visualized portions of the pulmonary artery and branches are normal. Venous The inferior vena cava is normal in size and collapses greater than 50% with inspiration. Pericardium/Pleural There is no evidence of pericardial effusion. Prior Study Comparison No prior study available for comparison. Measurements 2D Linear Measurements IVSd: 1.51 0.6-0.9/0.6-1.0 cm LVIDd: 4.77 3.9-5.3/4.2-5.9 cm LVIDd Index: 2.82 2.4-3.2/2.2-3.1 cm/m2 LVIDs: 3.44 2.0-3.6 cm LVPWd: 1.51 0.7-1.1 cm Ao Root: 3.60 2.1-3.5 cm LA Diam: 4.10 2.7-3.8/3.0-4.0 cm LAIDs Index: 2.43 1.5-2.3 cm/m2 LV Mass: 378.77 67-162/88-224 g LV Mass Index: 224.12 43-95/49-115 g/m2 LVOT Diam: 2.10 3.0+(-)1.3 cm Mitral Valve MV Pk E: 0.99 MV PK A: 0.58 MV Decel Time: 117.00 E/A: 1.70 E'Lateral: 3.59 E'Medial: 3.48 E/E' Med: 28.60 E/E' Lat: 27.70 PHT: 34.00 MVA PHT: 6.47 Decel Mingo: 8.52 Aortic Valve AoV Pk Luiz: 1.15 AoV Mn Luiz: 0.72 AoV VTI: 0.22 AoV Pk Grad: 5.00 Aov Mn Grad: 3.00 JIMMIE Cont.VTI: 2.56 LVOT LVOT Pk Luiz: 0.74 LVOT Mn Luiz: 0.53 LVOT VTI: 0.16 LVOT Pk Grad: 2.00 LVOT Mn Grad: 1.00 LVOT Diam: 2.10 LVOT Area: 3.46 Diastolic Function MV Pk E: 0.99 MV Pk A: 0.58 E/A: 1.70 E'Medial: 3.48 E/E' Med: 28.60 E' Laterial: 3.59 E/E' Lat: 27.70 Right Ventricle TAPSE (mm): 2.30 TVS' Luiz: 14.00 Tricuspid Valve TR Pk Luiz: 2.49 TR Pk Grad: 25.00 RA Press: 3.00 RVSP: 36.00 Great Vessels Aorta Ao Root-2D: 3.60 2.0-3.7 cm Sinus of Valsalva: 3.60 2.0-3.[address] Ridge: 3.30 1.7-3.4 cm Pulmonary Valve PV Pk Luiz: 0.91 Peak PV Grad: 3.00 Updated in Other Vendor System with Status of Final Jose L Mesa MD electronically signed on 05/27/2021 4:18:02 PM with status of Final
[2021-05-27] MEDS: niCARdipine HCL 25 MG in 0.9 % Sodium Chloride 250 ML 52 MG IVCONT (08:39)
[2021-05-27] MEDS: Spironolactone 25 MG TABLET PO (08:39)
[2021-05-27] MEDS: amLODIPine Besylate 10 MG TABLET PO (08:39)
--- NOTE | 2021-05-27 11:34 | MHC.CM.PN ---
Met with pt to discuss d/c plans: Pt states he resides with family, has no services and no adaptive equipment. 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 [employer] x3. Pt states he does not have insurance or a PCP and does not recall the name of the last PCP he saw or when he received care. Pt states he is eligible for insurance through his employer and will contact his HR department for enrollment information. Offered to assist pt with PCP appointment to which he stated he would f/u once discharged. Reminded pt that he will need antihypertensive medications for life and will need a prescribing PCP. Pt referred to [facility] financial should pt not be eligivle for employee sponsored insurance. Pt states he will arrange his own transportation home, likely the bus. CM to follow.
--- NOTE | 2021-05-27 11:55 | MHC.CDI.CONC ---
CDI Concurrent Query Documentation Clarification: PHYSICIAN'S DOCUMENTATION REQUEST Date of Query: 05/27/21 1156 Patient Name: David Amaral Admit Date: 05/27/21 Dear Doctor, A review of the medical record indicates additional documentation may be needed. Please review below and update the documentation accordingly. Clinical Indicators: Documentation in the medical record includes: Risk Factors/Clinical Indicators/Treatments Nutrition Notes 05/27/21: BMI 20.7 po intake < 50 % x5 days IBW 148.00 body fat well nourished muscle mass clavicle mild depletion Underweight for height, HT 5'7, WT 60kg Rec add Ensure BID ASPEN Criteria* Acute Illness Chronic Illness Clinical Characteristic Non-Severe (2 or more criteria present) Severe (2 or more criteria present) Non-Severe (2 or more criteria present) Severe (2 or more criteria present) Energy Intake <75% for >7 days <=50% for >=5 days <75% for >=1 month <=75% for >=1 month Weight Loss 1 week 1 ? 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 Malnutrition (specify if mild, moderate, or severe) Protein calorie malnutrition (specify if mild, moderate, or severe) Cachexia without malnutrition No nutritional deficiency Other (please specify): Unable to determine Use of terms such as suspected, likely, concern for, or probable (associated with a specific diagnosis that is being evaluated, monitored, or treated as if it exists) are acceptable and can be coded in the inpatient setting, when documented at the time of discharge. Thank you, Juanita Ramsey RN Extension: [phone] Please use your independent medical judgment in providing your response. THIS QUERY IS PART OF THE PERMANENT MEDICAL RECORD Provider Response: Malnutrition ( mild)
--- NOTE | 2021-05-27 13:11 | CONS_ITS ---
DATE OF SERVICE: REASON FOR CONSULTATION: Asked to see the patient to assist in evaluation and management of the patient's hypertensive crisis with acute kidney injury on question of advanced chronic kidney disease. HISTORY OF PRESENT ILLNESS: In summary, the patient is a 61-year-old gentleman with no known past medical history, has not seen a doctor for over a decade and states he has no chronic medical problems and does not take any medications. He is unaware of having had hypertension in the past. There is no family history of kidney disease. He had been doing well up until several days ago when he started having some GI upset, he describes as a stomach bug and this got better. Then, he started having some head pressure. Came to the emergency room as he thought he was anxious and something was not right. In the emergency room, he was noted to have blood pressure 250/155. He had no chest pain, shortness of breath, nausea, vomiting, fever, sweats, or chills and no change in his voiding pattern. There has been no gross hematuria or dysuria. Labs on admission showed a creatinine of 6.2 and severe hypertension. He had a chest CT, which shows some cardiomegaly and pulmonary edema. He has been treated for his blood pressure with IV labetalol, hydralazine, and Lasix. He is now on a nicardipine drip. He is overall feeling better, although he is a bit sleepy and says that he has not slept well for several days. He is on no outpatient medications. MEDICATIONS: His current medications are noted on the MAR and he is on IV nicardipine. ALLERGIES: HE HAS NO KNOWN DRUG ALLERGIES. SOCIAL HISTORY: He is a nonsmoker, nondrinker. No illicit drug use and denies taking NSAIDs. PHYSICAL EXAMINATION: VITAL SIGNS: Blood pressure 158/88 with a heart rate of 111, afebrile on 2 L of oxygen. As mentioned, blood pressure was 250/155 in the emergency room. HEAD: Atraumatic and normocephalic. NECK: Supple. Mucous membranes are moist. There is no JVD. LUNGS: Clear. CARDIAC: Regular rate and rhythm without rub. ABDOMEN: Soft, nontender. Good bowel sounds. No CVA tenderness. EXTREMITIES: Shows no edema. LABORATORY DATA: Hemoglobin 9.4, hematocrit 27.2, white cell count 9.4, platelet count 124. Sodium 133, potassium 3.1, chloride 94, bicarb 24, BUN 61, creatinine 6.27, calcium 9.3, phosphorus 4.6. Urinalysis showed 3+ protein and there were some red cells in the UA. He had a CAT scan of the abdomen and chest, which showed some cardiomegaly and pulmonary interstitial edema. Kidneys are normal in size. No hydronephrosis noted. IMPRESSION: A 61-year-old with hypertensive crisis and acute kidney injury on question of chronic kidney disease. 1. Hypertensive crisis. There is no obvious precipitant for the hypertensive crisis. His tox screen was negative. Going against any drug use and he denies drug use. He needs to have a workup for secondary causes of hypertension such as renal artery stenosis as well as pheochromocytoma and primary hyperaldosteronism. It may simply be essential hypertension that now had an episode of hypertensive crisis. His blood pressures come under control on the nicardipine drip and gradually lowering his blood pressure. 2. Severe renal dysfunction. I suspect he has a component of chronic kidney disease given he has some anemia. At this point, it is unclear what extent the renal dysfunction is acute versus chronic. As we control his blood pressure, we will see if the renal function improves. He needs a full workup for causes of his renal dysfunction, particularly given the protein in the urine and the blood in the urine. It is possible that he has an acute renal parenchymal injury that is causing the acute kidney injury and the hypertensive crisis, although this seems less likely. Hypertensive crisis can be associated with malignant hypertension and TMA in the kidneys with fibrinoid necrosis. This is a possibility as well for his renal dysfunction. 3. Anemia. SUGGESTIONS: At this time include continue with the nicardipine and get him on oral blood pressure medications. Doppler of the renal arteries along with ultrasound of the kidneys to look at kidney size and echogenicity. Full serologies to rule out an acute glomerulonephritis. Need to protect his nondominant arm for possible dialysis in the future if indeed this is his new baseline renal function. We will follow the patient closely with the team. MD LALIT Vance/GUERDA / [id number]
--- NOTE | 2021-05-27 13:15 | PHA.MEDREC ---
Pharmacy Consult ? Medication Reconciliation Pharmacy has completed the medication reconciliation. Patient reports no medications at home. Suad Salgado, OliviaD
[2021-05-27] MEDS: cloNIDine 0.2 MG PATCH.TDWK TRANSDERMA (14:47)
[2021-05-27 15:19] LABS: Creatinine Urine 53.14 mg/dL; Total Protein Urine Random 195 mg/dL (<12)
[2021-05-27 15:25] LABS: Microalbum/Creatinine Ratio Ur 2090.7 ug/mg cr
[2021-05-27] MEDS: Metoprolol Succinate ER 50 MG TAB.ER.24H PO (16:24)
[2021-05-27] MEDS: Tamsulosin HCL 0.4 MG CAPSULE PO (16:24)
[2021-05-27] MEDS: cloNIDine 0.3 MG PATCH.TDWK TRANSDERMA (16:25)
[2021-05-27] MEDS: niCARdipine HCL 25 MG in 0.9 % Sodium Chloride 250 ML 26 MG IVCONT (19:25)
[2021-05-27 20:23] LABS: Anion Gap 18 (12-20); Blood Urea Nitrogen 65 mg/dL (9-16); Calcium 8.9 mg/dL (8.4-10.2); Carbon Dioxide 25 mmol/L (22-29); Chloride 94 mmol/L (96-108); Creatinine Clr Calc Pharmacy 9.9; Estimated Glomerular Filt Rate 8; Glucose Random 124 mg/dL (60-115); Potassium 3.6 mmol/L (3.3-5.1); Sodium 133 mmol/L (135-145)
[2021-05-28] VITALS (15 sets, daily range): BP systolic 144–188; BP diastolic 85–112; PULSE 78–115; RESP 14–28; TEMP 36.2–37.4; O2SAT 94–99; BMI 21.2
[2021-05-28 06:04] LABS: MANUAL DIFF FLAG NO
[2021-05-28 06:10] LABS: Basophils Percent Auto 0.4 % (0-2); Eosinophils Absolute Auto 0.2 X10*3/uL (0.0-0.4); Eosinophils Percent Auto 1.9 % (0-4); Hematocrit 26.7 % (42.0-52.0); Imm Gran Abs Auto 0.04 X10*3/uL (0.00-0.03); Imm Gran Pct Auto 0.4 % (0.0-0.4); Lymphocytes Absolute Auto 1.7 X10*3/uL (1.2-4.9); Lymphocytes Percent Auto 15.9 % (20-40); Mean Corpuscular HGB Conc 33.7 g/dl (31.0-36.0); Mean Corpuscular Hemoglobin 30.9 pg (27.0-33.0); Mean Corpuscular Volume 91.8 fL (80.0-98.0); Mean Platelet Volume 12.1 fL (9.4-12.4); Monocytes Absolute Auto 0.8 X10*3/uL (0.1-1.2); Monocytes Percent Auto 6.9 % (2-11); Neutrophils Absolute Auto 8.1 x10*3/uL (2.0-8.3); Neutrophils Percent Auto 74.5 % (45-73); Platelet Count 139 X10*3/uL (160-400); Red Blood Count 2.91 X10*6/uL (4.60-5.80); Red Cell Distribution Width 15.3 % (11.0-16.0); White Blood Count 10.8 X10*3/uL (4.8-10.8)
[2021-05-28 06:56] LABS: Alanine Aminotransferase 19 U/L (0-40); Albumin Level 3.7 g/dL (3.5-5.0); Alkaline Phosphatase 47 U/L (39-117); Anion Gap 15 (12-20); Aspartate Amino Transferase 24 U/L (5-37); Bilirubin Total 0.7 mg/dL (0.0-1.0); Blood Urea Nitrogen 72 mg/dL (9-16); Calcium 8.9 mg/dL (8.4-10.2); Carbon Dioxide 27 mmol/L (22-29); Chloride 93 mmol/L (96-108); Creatinine Clr Calc Pharmacy 10.1; Estimated Glomerular Filt Rate 8; Glucose Random 117 mg/dL (60-115); Magnesium 2.8 mg/dL (1.6-2.6); Phosphorus 3.5 mg/dL (2.7-4.5); Potassium 3.7 mmol/L (3.3-5.1); Sodium 131 mmol/L (135-145); Total Protein 6.4 g/dL (6.5-8.0)
[2021-05-28] MEDS: amLODIPine Besylate 10 MG TABLET PO (08:27)
[2021-05-28] MEDS: Heparin Sodium,Porcine 5,000 UNIT/ML VIAL 5000 UNIT SUBCUT (08:27)
[2021-05-28] MEDS: Spironolactone 25 MG TABLET PO (08:27)
[2021-05-28] MEDS: Metoprolol Succinate ER 100 MG TAB.ER.24H PO (08:27)
[2021-05-28] MEDS: Tamsulosin HCL 0.4 MG CAPSULE PO (08:27)
--- NOTE | 2021-05-28 10:13 | MHC.CM.PN ---
Met with pt again to review d/c plan: pt states he initially waived his health insurance through his employer but will contact them to be emergently added. [facility] financial was consulted for assistance as well. Pt states he is interested in a [facility] PCP - will attempt to assist pt with new provider visit - this may be difficult with no payor. CM to follow
--- NOTE | 2021-05-28 10:37 | P.PNCC_ITS ---
Subjective Subjective Date of Service: 05/28/21 Interval History: 61-year-old gentleman with no prior past medical history has not seen physician for over 20 years, admitted on 05/27/2021 with hypertensive emergency and acute renal failure requiring initiation of Cardene drip. Patient has been started on antihypertensive regimen and slowly titrate of Cardene drip nephrology service. No events overnight. Titrated off Cardene. Critical Care Time (minutes): 0 Physical Exam Vital Signs: Vital Signs: Last Vital Signs Temp 98.8 F 05/28/21 08:00 Pulse 115 H 05/28/21 09:00 Resp 21 H 05/28/21 09:00 BP 178/100 H 05/28/21 09:00 Pulse Ox 94 05/28/21 09:00 Oxygen Flow Rate 4 05/27/21 02:07 BMI result Body Mass Index 21.2 Const: General: no acute distress, alert and awake Eyes: Sclerae: sclerae normal EOM: EOMs intact bilaterally Neck: Neck: Yes no lymphadenopathy, Yes trachea midline and Yes supple Resp: Effort & Inspection: normal respiratory effort and no respiratory distress Auscultation: clear to auscultation bilaterally Cardio: Rate: regular rate Rhythm: regular rhythm Heart sounds: no gallops, no murmurs and no rubs GI: Palpation (GI): Soft to palpation and Other GI palpation findings present ( Nontender) Auscultation: normal bowel sounds Extrem: General: Yes no pedal edema, No clubbing and No cyanosis Objective Data Labs CBC & Chem 7: 05/28/21 06:00 05/28/21 06:00 Labs: Laboratory Results - last 24 hr 05/27/21 05/27/21 05/28/21 14:32 19:22 06:00 WBC 10.8 RBC 2.91 L Hgb 9.0 L Hct 26.7 L MCV 91.8 MCH 30.9 MCHC 33.7 RDW 15.3 Plt Count 139 L MPV 12.1 Immature Gran % (Auto) 0.4 Neut % (Auto) 74.5 H Lymph % (Auto) 15.9 L [place] % (Auto) 6.9 Eos % (Auto) 1.9 Baso % (Auto) 0.4 Lymph # (Auto) 1.7 [place] # (Auto) 0.8 Eos # (Auto) 0.2 Baso # (Auto) 0.0 Abs Immat Gran (auto) 0.04 H Absolute Neuts (auto) 8.1 Absolute Nucleated RBC 0.000 Nucleated RBC % (auto) 0.0 Sodium 133 L Potassium 3.6 Chloride 94 L Carbon Dioxide 25 Anion Gap 18 BUN 65 H Creatinine 6.80 H* Estim Creat Clear Calc 9.9 Estimated GFR 8 Random Glucose 124 H Calcium 8.9 Phosphorus Magnesium Total Bilirubin AST ALT Alkaline Phosphatase Total Protein Albumin U Random Total Protein 195 H Urine Creatinine 53.14 Urine Microalbumin 1111.0 Microalb/Creat Ratio 2090.7 05/28/21 06:00 WBC RBC Hgb Hct MCV MCH MCHC RDW Plt Count MPV Immature Gran % (Auto) Neut % (Auto) Lymph % (Auto) [place] % (Auto) Eos % (Auto) Baso % (Auto) Lymph # (Auto) [place] # (Auto) Eos # (Auto) Baso # (Auto) Abs Immat Gran (auto) Absolute Neuts (auto) Absolute Nucleated RBC Nucleated RBC % (auto) Sodium 131 L Potassium 3.7 Chloride 93 L Carbon Dioxide 27 Anion Gap 15 BUN 72 H Creatinine 6.83 H* Estim Creat Clear Calc 10.1 Estimated GFR 8 Random Glucose 117 H Calcium 8.9 Phosphorus 3.5 Magnesium 2.8 H Total Bilirubin 0.7 AST 24 ALT 19 Alkaline Phosphatase 47 Total Protein 6.4 L Albumin 3.7 U Random Total Protein Urine Creatinine Urine Microalbumin Microalb/Creat Ratio Progress Note: A&P Assessment and plan (1) Hypertensive emergency: Status: Acute (2) Malignant hypertension: Status: Acute (3) CALVIN (acute kidney injury): Status: Acute (4) CHF (congestive heart failure): Status: Acute Plan Assessment: 61-year-old gentleman admitted with hypertensive emergency and acute kidney failure initially requiring Cardene drip, now titrated off. Plan: Neuro: No acute issues. Cardiac: Resistant hypertension. Continues on metoprolol, amlodipine, spironolactone, and clonidine. Now YANNI-inhibitor or losartan secondary to renal failure. 2D echocardiogram results reviewed. Underlying chronic diastolic congestive heart failure. Pulmonary: No acute issues. Renal: acute renal failure, likely secondary to longstanding hypertension. Nephrology service care appreciated. Continue to monitor renal indices and urine output. Non oliguric. Endo: No acute issues. GI: No acute issues. ID: No acute issues Heme/Onc: No acute issues. Psych: No acute issues. Miscellaneous: No acute issues. Prophylaxis: Heparin Diet: cardiac Quality Stroke Does the patient have a stroke diagnosis?: No VTE Prior VTE?: No VTE Risk Level:: Medical - moderate - high VTE Device Contraindication: Treatment Not Indicated VTE Drug Contraindication: N/A - Med Ordered
--- NOTE | 2021-05-28 11:07 | P.PNNP_ITS ---
Subjective Subjective Date of Service: 05/28/21 Interval history: Seen and exained, events noted Physical Exam Vital Signs: Vital Signs: Last Vital Signs Temp 98.8 F 05/28/21 08:00 Pulse 115 H 05/28/21 09:00 Resp 21 H 05/28/21 09:00 BP 178/100 H 05/28/21 09:00 Pulse Ox 94 05/28/21 09:00 Oxygen Flow Rate 4 05/27/21 02:07 BMI result Body Mass Index 21.2 Const: General: no acute distress, alert and awake Eyes: Sclerae: sclerae normal EOM: EOMs intact bilaterally Neck: Neck: Yes no lymphadenopathy, Yes trachea midline and Yes supple Resp: Effort & Inspection: normal respiratory effort and no respiratory distress Auscultation: clear to auscultation bilaterally Cardio: Rate: regular rate Rhythm: regular rhythm Heart sounds: no gallops, no murmurs and no rubs GI: Palpation (GI): Soft to palpation and Other GI palpation findings present ( Nontender) Auscultation: normal bowel sounds Extrem: General: Yes no pedal edema, No clubbing and No cyanosis Objective Data Labs CBC & Chem 7: 05/28/21 06:00 05/28/21 06:00 Labs: Laboratory Results - last 24 hr 05/27/21 05/27/21 05/28/21 14:32 19:22 06:00 WBC 10.8 RBC 2.91 L Hgb 9.0 L Hct 26.7 L MCV 91.8 MCH 30.9 MCHC 33.7 RDW 15.3 Plt Count 139 L MPV 12.1 Immature Gran % (Auto) 0.4 Neut % (Auto) 74.5 H Lymph % (Auto) 15.9 L [place] % (Auto) 6.9 Eos % (Auto) 1.9 Baso % (Auto) 0.4 Lymph # (Auto) 1.7 [place] # (Auto) 0.8 Eos # (Auto) 0.2 Baso # (Auto) 0.0 Abs Immat Gran (auto) 0.04 H Absolute Neuts (auto) 8.1 Absolute Nucleated RBC 0.000 Nucleated RBC % (auto) 0.0 Sodium 133 L Potassium 3.6 Chloride 94 L Carbon Dioxide 25 Anion Gap 18 BUN 65 H Creatinine 6.80 H* Estim Creat Clear Calc 9.9 Estimated GFR 8 Random Glucose 124 H Calcium 8.9 Phosphorus Magnesium Total Bilirubin AST ALT Alkaline Phosphatase Total Protein Albumin U Random Total Protein 195 H Urine Creatinine 53.14 Urine Microalbumin 1111.0 Microalb/Creat Ratio 2090.7 05/28/21 06:00 WBC RBC Hgb Hct MCV MCH MCHC RDW Plt Count MPV Immature Gran % (Auto) Neut % (Auto) Lymph % (Auto) [place] % (Auto) Eos % (Auto) Baso % (Auto) Lymph # (Auto) [place] # (Auto) Eos # (Auto) Baso # (Auto) Abs Immat Gran (auto) Absolute Neuts (auto) Absolute Nucleated RBC Nucleated RBC % (auto) Sodium 131 L Potassium 3.7 Chloride 93 L Carbon Dioxide 27 Anion Gap 15 BUN 72 H Creatinine 6.83 H* Estim Creat Clear Calc 10.1 Estimated GFR 8 Random Glucose 117 H Calcium 8.9 Phosphorus 3.5 Magnesium 2.8 H Total Bilirubin 0.7 AST 24 ALT 19 Alkaline Phosphatase 47 Total Protein 6.4 L Albumin 3.7 U Random Total Protein Urine Creatinine Urine Microalbumin Microalb/Creat Ratio Procedures Date of Service Date of Service: 05/28/21 Assessment & Plan Assessment and plan (1) Hypertensive emergency: Status: Acute (2) Malignant hypertension: Status: Acute (3) CALVIN (acute kidney injury): Status: Acute (4) CHF (congestive heart failure): Status: Acute Plan 1. Adv Renal Dysfunc: w/u in progress as still unlcear to what extent this is CALVIN on CKD vs adv CKD; sero ordered and will proceed with kidney to make definitive Dx and prognosis 2. HTN crisis: w/u to r/o 2ry causes sent; PATRIC r/o by doppler BP remains sub-optimal control--will need cont incr meds 3. HypoNa: d/t adv renal dysfunc 4. Anemia REC: switch lopressor to labetalol; add loop diuretic and hydralazine prn; kidne bx by rad ( they want it under CT); d/c sq heparin; protect LUE forfuture AVF will follow with team Time Spent With Patient Time: Total time spent is greater than 50% in coordination of care (as documented) at patient's floor/unit and/or counseling patient: Progress Note: Quality Stroke Does the patient have a stroke diagnosis?: No
[2021-05-28 11:47] LABS: Prothrombin Time 11.8 SEC (9.9-13.0)
[2021-05-28] MEDS: Torsemide 20 MG TABLET 40 MG PO (11:48)
[2021-05-28 12:59] LABS: Hepatitis B Surface Antigen Negative (Negative); ~HepC Num1 0.12 S/CO (0.00-0.79); ~Hepatitis C Antibody Nonreactive (Nonreactive)
[2021-05-28 13:49] LABS: HBc Num1 0.04 S/CO (0.00-0.79); Hepatitis B Core Antibody Nonreactive (Nonreactive); ~Hepatitis B Surface Antibody NONREACTIVE (Nonreactive)
[2021-05-28] MEDS: Labetalol HCL 200 MG TABLET PO ×2 (15:51→20:19)
[2021-05-28 17:06] LABS: Complement C3 127 mg/dL (82-185)
[2021-05-28] MEDS: hydrOXYzine HCL 25 MG TABLET PO (21:52)
[2021-05-28] MEDS: Melatonin 3 MG TABLET 6 MG PO (21:52)
[2021-05-29] VITALS (12 sets, daily range): BP systolic 97–159; BP diastolic 55–91; PULSE 65–90; RESP 17–20; TEMP 35.7–37; O2SAT 96–100
[2021-05-29 06:43] LABS: MANUAL DIFF FLAG NO
[2021-05-29 06:51] LABS: Basophils Percent Auto 0.4 % (0-2); Eosinophils Absolute Auto 0.3 X10*3/uL (0.0-0.4); Hematocrit 24.8 % (42.0-52.0); Hemoglobin 8.4 g/dl (14.0-18.0); Imm Gran Abs Auto 0.05 X10*3/uL (0.00-0.03); Imm Gran Pct Auto 0.6 % (0.0-0.4); Lymphocytes Absolute Auto 1.8 X10*3/uL (1.2-4.9); Lymphocytes Percent Auto 20.2 % (20-40); Mean Corpuscular HGB Conc 33.9 g/dl (31.0-36.0); Mean Corpuscular Hemoglobin 31.5 pg (27.0-33.0); Mean Corpuscular Volume 92.9 fL (80.0-98.0); Mean Platelet Volume 11.7 fL (9.4-12.4); Monocytes Absolute Auto 0.6 X10*3/uL (0.1-1.2); Monocytes Percent Auto 7.2 % (2-11); Neutrophils Absolute Auto 6.1 x10*3/uL (2.0-8.3); Neutrophils Percent Auto 68.6 % (45-73); Platelet Count 132 X10*3/uL (160-400); Red Blood Count 2.67 X10*6/uL (4.60-5.80); Red Cell Distribution Width 15.4 % (11.0-16.0); White Blood Count 8.9 X10*3/uL (4.8-10.8)
[2021-05-29 07:13] LABS: Anion Gap 16 (12-20); Blood Urea Nitrogen 75 mg/dL (9-16); Calcium 8.7 mg/dL (8.4-10.2); Carbon Dioxide 25 mmol/L (22-29); Chloride 91 mmol/L (96-108); Creatinine Clr Calc Pharmacy 9.9; Estimated Glomerular Filt Rate 8; Glucose Random 98 mg/dL (60-115); Potassium 3.4 mmol/L (3.3-5.1); Sodium 129 mmol/L (135-145)
[2021-05-29] MEDS: amLODIPine Besylate 10 MG TABLET PO (09:07)
[2021-05-29] MEDS: Spironolactone 25 MG TABLET PO (09:07)
[2021-05-29] MEDS: Torsemide 20 MG TABLET 40 MG PO (09:07)
[2021-05-29] MEDS: Tamsulosin HCL 0.4 MG CAPSULE PO (09:08)
[2021-05-29] MEDS: Labetalol HCL 200 MG TABLET PO (09:08)
--- NOTE | 2021-05-29 11:16 | HO.RADPN ---
RADIOLOGY Narrative Narrative: CT guided right lower pole renal biopsy using coaxial system. 2 18 g specimens obtained. Small perinephric hematoma stable on images.
[2021-05-29] MEDS: Lidocaine HCl 1 % MPF 5 ML VIAL SUBCUT (11:22)
--- NOTE | 2021-05-29 13:15 | PM.PNNEP ---
Subjective Subjective Date of Service: 05/29/21 Principal diagnosis: Pt s/p Kidney BX Interval history: Seen and examined, events noted S/o Renal Bx No Bleeding No sig pain Physical Exam Vital Signs: Vital Signs: Last Vital Signs Temp 97.0 F 05/29/21 12:20 Pulse 76 05/29/21 12:20 Resp 18 05/29/21 12:20 BP 132/87 05/29/21 12:20 Pulse Ox 97 05/29/21 12:20 Oxygen Flow Rate 4 05/27/21 02:07 BMI result Body Mass Index 21.2 Const General:?no acute distress, alert and awake Eyes Sclerae:?sclerae normal EOM:?EOMs intact bilaterally Neck Neck:?Yes no lymphadenopathy, Yes trachea midline and Yes supple Resp Effort & Inspection:?normal respiratory effort and no respiratory distress Auscultation:?clear to auscultation bilaterally Cardio Rate:?regular rate Rhythm:?regular rhythm Heart sounds:?no gallops, no murmurs and no rubs GI Palpation (GI):?Soft to palpation and Other GI palpation findings present (? Nontender) Auscultation:?normal bowel sounds Extrem General:?Yes no pedal edema, No clubbing and No cyanosis Objective Data Labs CBC & Chem 7: 05/29/21 06:11 05/29/21 06:11 Labs: Laboratory Results - last 24 hr 05/27/21 05/27/21 05/29/21 13:01 13:01 06:11 WBC 8.9 RBC 2.67 L Hgb 8.4 L Hct 24.8 L MCV 92.9 MCH 31.5 MCHC 33.9 RDW 15.4 Plt Count 132 L MPV 11.7 Immature Gran % (Auto) 0.6 H Neut % (Auto) 68.6 Lymph % (Auto) 20.2 [place] % (Auto) 7.2 Eos % (Auto) 3.0 Baso % (Auto) 0.4 Lymph # (Auto) 1.8 [place] # (Auto) 0.6 Eos # (Auto) 0.3 Baso # (Auto) 0.0 Abs Immat Gran (auto) 0.05 H Absolute Neuts (auto) 6.1 Absolute Nucleated RBC 0.000 Nucleated RBC % (auto) 0.0 Sodium Potassium Chloride Carbon Dioxide Anion Gap BUN Creatinine Estim Creat Clear Calc Estimated GFR Random Glucose Calcium Complement C3 127 Complement C4 30 Hep Bs Antigen Negative Hep Bs Antibody NONREACTIVE Hep B Core Total Ab Nonreactive Hepatitis C Ab (EIA) Nonreactive 05/29/21 06:11 WBC RBC Hgb Hct MCV MCH MCHC RDW Plt Count MPV Immature Gran % (Auto) Neut % (Auto) Lymph % (Auto) [place] % (Auto) Eos % (Auto) Baso % (Auto) Lymph # (Auto) [place] # (Auto) Eos # (Auto) Baso # (Auto) Abs Immat Gran (auto) Absolute Neuts (auto) Absolute Nucleated RBC Nucleated RBC % (auto) Sodium 129 L Potassium 3.4 Chloride 91 L Carbon Dioxide 25 Anion Gap 16 BUN 75 H Creatinine 6.91 H* Estim Creat Clear Calc 9.9 Estimated GFR 8 Random Glucose 98 Calcium 8.7 Complement C3 Complement C4 Hep Bs Antigen Hep Bs Antibody Hep B Core Total Ab Hepatitis C Ab (EIA) Procedures Date of Service Date of Service: 05/29/21 Assessment & Plan Assessment and plan (1) CALVIN (acute kidney injury): Status: Acute (2) Hypertensive emergency: Status: Acute Plan 1. Adv Renal Dysfunc: w/u in progress as still unlcear to what extent this is CALVIN on CKD vs adv CKD; sero ordered and will proceed with kidney to make definitive Dx and prognosis 2. HTN crisis: w/u to r/o 2ry causes sent; PATRIC r/o by doppler BP remains sub-optimal control--will need cont incr meds 3. HypoNa: d/t adv renal dysfunc 4. Anemia REC: Kcl 20 meq x 2 doses Q 4 F/u K on Aldactone F/u H/h orderedafter Bx Keep pt in house today Can d/c in AM if stable No Uremic symptoms Will follow Bx report F/u with Dr. Abraham as out pt after D/c protect LUE forfuture AVF will follow with team Time Spent With Patient Time: Total time spent is greater than 50% in coordination of care (as documented) at patient's floor/unit and/or counseling patient: Progress Note: Quality Stroke Does the patient have a stroke diagnosis?: No
--- NOTE | 2021-05-29 13:19 | P.PNNP_ITS ---
Subjective Subjective Date of Service: 05/30/21 Principal diagnosis: Pt s/p Kidney BX Interval history: Seen and examined, events noted S/o Renal Bx No Bleeding No sig pain Physical Exam Vital Signs: Vital Signs: Last Vital Signs Temp 97.0 F 05/29/21 12:20 Pulse 76 05/29/21 12:20 Resp 18 05/29/21 12:20 BP 132/87 05/29/21 12:20 Pulse Ox 97 05/29/21 12:20 Oxygen Flow Rate 4 05/27/21 02:07 BMI result Body Mass Index 21.2 Objective Data Labs CBC & Chem 7: 05/30/21 06:19 05/30/21 06:19 Labs: Laboratory Results - last 24 hr 05/27/21 05/27/21 05/29/21 13:01 13:01 06:11 WBC 8.9 RBC 2.67 L Hgb 8.4 L Hct 24.8 L MCV 92.9 MCH 31.5 MCHC 33.9 RDW 15.4 Plt Count 132 L MPV 11.7 Immature Gran % (Auto) 0.6 H Neut % (Auto) 68.6 Lymph % (Auto) 20.2 [place] % (Auto) 7.2 Eos % (Auto) 3.0 Baso % (Auto) 0.4 Lymph # (Auto) 1.8 [place] # (Auto) 0.6 Eos # (Auto) 0.3 Baso # (Auto) 0.0 Abs Immat Gran (auto) 0.05 H Absolute Neuts (auto) 6.1 Absolute Nucleated RBC 0.000 Nucleated RBC % (auto) 0.0 Sodium Potassium Chloride Carbon Dioxide Anion Gap BUN Creatinine Estim Creat Clear Calc Estimated GFR Random Glucose Calcium Complement C3 127 Complement C4 30 Hep Bs Antigen Negative Hep Bs Antibody NONREACTIVE Hep B Core Total Ab Nonreactive Hepatitis C Ab (EIA) Nonreactive 05/29/21 06:11 WBC RBC Hgb Hct MCV MCH MCHC RDW Plt Count MPV Immature Gran % (Auto) Neut % (Auto) Lymph % (Auto) [place] % (Auto) Eos % (Auto) Baso % (Auto) Lymph # (Auto) [place] # (Auto) Eos # (Auto) Baso # (Auto) Abs Immat Gran (auto) Absolute Neuts (auto) Absolute Nucleated RBC Nucleated RBC % (auto) Sodium 129 L Potassium 3.4 Chloride 91 L Carbon Dioxide 25 Anion Gap 16 BUN 75 H Creatinine 6.91 H* Estim Creat Clear Calc 9.9 Estimated GFR 8 Random Glucose 98 Calcium 8.7 Complement C3 Complement C4 Hep Bs Antigen Hep Bs Antibody Hep B Core Total Ab Hepatitis C Ab (EIA) Procedures Date of Service Date of Service: 05/29/21 Assessment & Plan Time Spent With Patient Time: Total time spent is greater than 50% in coordination of care (as documented) at patient's floor/unit and/or counseling patient: Progress Note: Quality Stroke Does the patient have a stroke diagnosis?: No
[2021-05-29] MEDS: Potassium Chloride ER 20 MEQ TAB.ER.PRT PO ×2 (14:14→18:57)
--- NOTE | 2021-05-29 14:49 | MHC.CM.PN ---
Male 61 DX RT Renal A renal biopsy is scheduled today. Per MD rounds no discharge planned. A consult to [facility] financial councilors has been made to assist with insurance coverage. DP home with family support, and transportation.
--- NOTE | 2021-05-29 15:20 | P.PNIM_ITS ---
Subjective Subjective Date of Service: 05/29/21 Interval History: The patient was seen and evaluated this morning Laying in bed, feels comfortable blood pressure better controlled, dropped low around noontime No reported other overnight events. Systemic review: No fever, chills or weakness No chest pain, palpitation No shortness of breath or coughing No abdominal pain, nausea or vomiting No urinary symptoms No any rash or wounds Physical Exam Vital Signs: Vital Signs: Last Vital Signs Temp 96.2 F L 05/29/21 14:03 Pulse 70 05/29/21 14:23 Resp 18 05/29/21 14:23 BP 135/79 05/29/21 14:23 Pulse Ox 97 05/29/21 14:23 Oxygen Flow Rate 4 05/27/21 02:07 BMI result Body Mass Index 21.2 Const: Other: Constitutional : Alert, oriented, not in distress Neck : Normal inspection, Supple Cardiovascular : RRR, S1 S2, no lower extremity edema Respiratory : Good bilateral air entry, no crackles, wheezes or rhonchi Gastrointestinal: soft, lax, Normal bowel sounds, Non tender Skin : Warm, Dry Neurological : Alert & oriented x3, No focal deficit Objective Data Active Medications Acetaminophen (Acetaminophen 325 Mg Tablet) 650 mg PO Q6H PRN PRN Reason: Pain, Mild (Pain Scale 1-3) Amlodipine Besylate (Amlodipine Besylate 5 Mg Tablet) 5 mg PO DAILY [facility]; Protocol Labetalol HCl (Labetalol Hcl 100 Mg Tablet) 100 mg PO BID NEO; Protocol Melatonin (Melatonin 3 Mg Tablet) 6 mg PO BEDTIME PRN PRN Reason: insomnia Last Admin: 05/28/21 21:52 Dose: 6 mg Documented by: SERGIO Potassium Chloride (Potassium Chloride Er 20 Meq Tab.Er.Prt) 20 meq PO QID [facility] Stop: 05/29/21 17:01 Last Admin: 05/29/21 14:14 Dose: 20 meq Documented by: ANNA Tamsulosin HCl (Tamsulosin Hcl 0.4 Mg Capsule) 0.4 mg PO DAILY [facility] Last Admin: 05/29/21 09:08 Dose: 0.4 mg Documented by: ANNA Torsemide (Torsemide 20 Mg Tablet) 40 mg PO DAILY [facility]; Protocol Last Admin: 05/29/21 09:07 Dose: 40 mg Documented by: ANNA Labs CBC & Chem 7: 05/29/21 06:11 05/29/21 06:11 Labs: Laboratory Results - last 24 hr 05/27/21 05/29/21 05/29/21 13:01 06:11 06:11 MCV 92.9 MCH 31.5 MCHC 33.9 RDW 15.4 Plt Count 132 L MPV 11.7 Immature Gran % (Auto) 0.6 H Neut % (Auto) 68.6 Lymph % (Auto) 20.2 [place] % (Auto) 7.2 Eos % (Auto) 3.0 Baso % (Auto) 0.4 Lymph # (Auto) 1.8 [place] # (Auto) 0.6 Eos # (Auto) 0.3 Baso # (Auto) 0.0 Abs Immat Gran (auto) 0.05 H Absolute Neuts (auto) 6.1 Absolute Nucleated RBC 0.000 Nucleated RBC % (auto) 0.0 Anion Gap 16 Estim Creat Clear Calc 9.9 Estimated GFR 8 Random Glucose 98 Calcium 8.7 Complement C3 127 Complement C4 30 Assessment and Plan (1) Hypertensive emergency: Status: Acute (2) CALVIN (acute kidney injury): Status: Acute (3) Hyponatremia: Status: Acute (4) Anemia: Status: Acute Plan ?61-year-old gentleman admitted with hypertensive emergency and acute kidney failure initially requiring Cardene drip, downgrade from ICU to medical floor. HTN emergency, resolved Decrease amlodipine and labetalol Discontinue spironolactone, and clonidine 2D echocardiogram showing chronic diastolic congestive heart failure Start torsemide per nephrology acute renal failure likely secondary to longstanding hypertension, unclear chronicity Ultrasound ruled out any obstruction Creatinine raising slowly to 6.9 Nephrology input appreciated Kidney biopsy done today Continue to monitor renal indices and urine output.? Non oliguric. F/u with Dr. Abraham as out pt after D/c? Hyponatremia Sodium of 129 this morning Secondary to kidney injury Continue to monitor, should improve with improvement of the kidney function Anemia Unclear etiology, no source of bleeding identified could be secondary to chronic kidney disease To check iron studies No need for transfusion at this point Follow CBC DVT PPX SCDs Quality Stroke Does the patient have a stroke diagnosis?: No VTE Prior VTE?: No VTE Risk Level:: Medical - moderate - high VTE Device Contraindication: Treatment Not Indicated VTE Drug Contraindication: N/A - Med Ordered
--- NOTE | 2021-05-29 15:56 | PC.NURSE ---
1215 back from biopsy. Dsg intact on right flank. No s/s of bleeding. VSS On bedrest for 2 hours. 1600 Ambulated in [place] with walker, short distance. Robby well, although still weak.
[2021-05-29 16:12] LABS: Hematocrit 22.7 % (42.0-52.0); Hemoglobin 7.5 g/dl (14.0-18.0); Mean Corpuscular Hemoglobin 31.1 pg (27.0-33.0); Mean Corpuscular Volume 94.2 fL (80.0-98.0); Mean Platelet Volume 11.6 fL (9.4-12.4); Platelet Count 143 X10*3/uL (160-400); Red Blood Count 2.41 X10*6/uL (4.60-5.80); Red Cell Distribution Width 15.6 % (11.0-16.0); White Blood Count 8.2 X10*3/uL (4.8-10.8)
[2021-05-29 16:37] LABS: Anion Gap 15 (12-20); Blood Urea Nitrogen 79 mg/dL (9-16); Calcium 8.5 mg/dL (8.4-10.2); Carbon Dioxide 27 mmol/L (22-29); Chloride 91 mmol/L (96-108); Creatinine Clr Calc Pharmacy 9.1; Estimated Glomerular Filt Rate 7; Glucose Random 196 mg/dL (60-115); Iron 52 mcg/dL (45-160); Percent Iron Saturation 22 % (15-50); Potassium 4.2 mmol/L (3.3-5.1); Sodium 129 mmol/L (135-145); Total Iron Binding Capacity 235 mcg/dL (228-428); Unsaturated Iron Binding 183 ug/dL
[2021-05-29] MEDS: Labetalol HCL 100 MG TABLET PO (21:39)
[2021-05-30] VITALS (17 sets, daily range): BP systolic 91–182; BP diastolic 42–101; PULSE 59–102; RESP 14–20; TEMP 35.6–37.2; O2SAT 91–100
--- NOTE | 2021-05-30 05:29 | PC.NURSE ---
MANAGER CONTRACT reported patient/s bed scale not working. She retrieved portable scale, which also was not fuctioning.
[2021-05-30 06:48] LABS: Hemoglobin 7.1 g/dl (14.0-18.0); Mean Corpuscular HGB Conc 33.8 g/dl (31.0-36.0); Mean Corpuscular Volume 94.6 fL (80.0-98.0); Mean Platelet Volume 11.3 fL (9.4-12.4); Platelet Count 143 X10*3/uL (160-400); Red Blood Count 2.22 X10*6/uL (4.60-5.80); Red Cell Distribution Width 15.9 % (11.0-16.0)
[2021-05-30 07:27] LABS: Anion Gap 18 (12-20); Blood Urea Nitrogen 84 mg/dL (9-16); Calcium 8.5 mg/dL (8.4-10.2); Carbon Dioxide 24 mmol/L (22-29); Chloride 92 mmol/L (96-108); Creatinine Clr Calc Pharmacy 9.6; Estimated Glomerular Filt Rate 8; Glucose Random 94 mg/dL (60-115); Potassium 4.3 mmol/L (3.3-5.1); Sodium 130 mmol/L (135-145)
--- NOTE | 2021-05-30 10:11 | PM.CNGS ---
History of Present Illness Consult details Consult date: 05/30/21 Narrative: 61-year-old male patient presenting with a hypertensive emergency and acute kidney failure admitted initially to the ICU now on IMC. Patient underwent a right kidney biopsy yesterday initially was fine but suddenly developed acute onset of right-sided abdominal pain associated with nausea without vomiting. The pain was described as sharp and intense. He subsequently underwent CT abdomen and pelvis which revealed a right retroperitoneal bleed with blood around Gherota's fascia. Laboratories revealed a drop in the hemoglobin from 8.4-7.1.His INR on 05/28/2020 was 1.0. He will be receiving a unit of PRBCs and FFP. He denies a previous history of bleeding problems. Review of Systems Review of Systems: Yes all other systems are reviewed and are negative Constitutional: Constitutional: Reports body ache(s), Denies chills and Reports difficulty sleeping Cardiovascular: Cardiovascular: Denies chest pain, Denies irregular heart rhythm and Denies dyspnea on exertion Respiratory: Respiratory: Denies chest congestion, Denies cough and Denies dyspnea on exertion Gastrointestinal: Gastrointestinal: Reports as per HPI, Reports abdominal pain, Reports nausea and Denies vomiting Musculoskeletal: Musculoskeletal: Reports back pain and Reports myalgias Integumentary/Breasts: Skin/Breast: Reports system reviewed and no additional complaints, except as docu PMFSH Past Medical History Medical History No known health problems Social History Social History Currently Displaying Signs/Symptoms of Drug Intoxication Withdrawal: No Advance Directives: No Advance Directives Information Provided: No service: No Current occupational status: employed Meds Allergies Allergy/AdvReac Type Severity Reaction Status Date / Time No Known Allergies Allergy Verified 05/29/21 09:36 Active Medications: Current Medications Acetaminophen (Acetaminophen 325 Mg Tablet) 650 mg PO Q6H PRN PRN Reason: Pain, Mild (Pain Scale 1-3) Amlodipine Besylate (Amlodipine Besylate 5 Mg Tablet) 5 mg PO DAILY [facility]; Protocol Sodium Chloride (Ns) 1,000 mls @ 100 mls/hr IVCONT .Q10H [facility] Desmopressin Acetate 20 mcg/ (Sodium Chloride) 55 mls @ 100 mls/hr IV ONCE ONE Stop: 05/30/21 10:32 Labetalol HCl (Labetalol Hcl 200 Mg Tablet) 200 mg PO BID [facility]; Protocol Melatonin (Melatonin 3 Mg Tablet) 6 mg PO BEDTIME PRN PRN Reason: insomnia Last Admin: 05/28/21 21:52 Dose: 6 mg Documented by: Tamsulosin HCl (Tamsulosin Hcl 0.4 Mg Capsule) 0.4 mg PO DAILY [facility] Last Admin: 05/29/21 09:08 Dose: 0.4 mg Documented by: Torsemide (Torsemide 20 Mg Tablet) 40 mg PO DAILY [facility]; Protocol Last Admin: 05/29/21 09:07 Dose: 40 mg Documented by: Home Medications Medication Instructions Recorded Confirmed Last Taken Type No Known Home Meds 05/27/21 05/27/21 Unknown History Physical Exam Vital Signs: Vital Signs: Last Vital Signs Temp 96.0 F L 05/30/21 08:00 Pulse 77 05/30/21 08:00 Resp 18 05/30/21 08:00 BP 140/84 H 05/30/21 08:00 Pulse Ox 100 05/30/21 08:00 Oxygen Flow Rate 4 05/27/21 02:07 BMI result Body Mass Index 21.2 Const: General: well developed and tired appearing Nutritional Appearance: well nourished Orientation/consciousness: patient oriented x3 Limitations: no limitations HEENT: Head: Yes normocephalic and Yes atraumatic Ears: hearing grossly normal bilaterally Resp: Effort & Inspection: normal respiratory effort, no audible wheezes, no cough and no respiratory distress GI: Inspection: Yes normal to inspection Palpation (GI): Soft to palpation, Tenderness to palpation present (GI) in the RLQ and in the RUQ and No Rebound tenderness present Percussion: Yes normal to percussion Auscultation: normal bowel sounds Rectal Exam - Male: Yes deferred Skin: General skin exam: no rashes or lesions noted Neuro: General: patient oriented x3 Extrem: General: Yes no clubbing, cyanosis or edema Results Labs Result diagrams: 05/30/21 06:19 05/30/21 06:19 Labs: Abnormal lab results 05/29/21 05/29/21 05/30/21 Range/Units 16:02 16:02 06:19 WBC 11.0 H (4.8-10.8) X10*3/uL RBC 2.41 L 2.22 L (4.60-5.80) X10*6/uL Hgb 7.5 L 7.1 L (14.0-18.0) g/dl Hct 22.7 L 21.0 L* (42.0-52.0) % Plt Count 143 L 143 L (160-400) X10*3/uL Sodium 129 L (135-145) mmol/L Chloride 91 L (96-108) mmol/L BUN 79 H (9-16) mg/dL Creatinine 7.54 H* (0.5-1.4) mg/dL Random Glucose 196 H D (60-115) mg/dL Crossmatch 05/30/21 05/30/21 Range/Units 06:19 07:36 WBC (4.8-10.8) X10*3/uL RBC (4.60-5.80) X10*6/uL Hgb (14.0-18.0) g/dl Hct (42.0-52.0) % Plt Count (160-400) X10*3/uL Sodium 130 L (135-145) mmol/L Chloride 92 L (96-108) mmol/L BUN 84 H (9-16) mg/dL Creatinine 7.18 H* (0.5-1.4) mg/dL Random Glucose (60-115) mg/dL Crossmatch See Detail Short CBC 05/29/21 05/30/21 Range/Units 16:02 06:19 WBC 8.2 11.0 H (4.8-10.8) X10*3/uL Hgb 7.5 L 7.1 L (14.0-18.0) g/dl Hct 22.7 L 21.0 L* (42.0-52.0) % Plt Count 143 L 143 L (160-400) X10*3/uL BMP 05/29/21 05/30/21 16:02 06:19 Sodium 129 L 130 L Potassium 4.2 D 4.3 Chloride 91 L 92 L Carbon Dioxide 27 24 BUN 79 H 84 H Creatinine 7.54 H* 7.18 H* Calcium 8.5 8.5 Urine 05/26/21 Range/Units 22:25 Urine Color STRAW Urine Appearance HAZY Urine pH 7.0 (5.0-8.0) Ur Specific [place] 1.020 (1.005-1.025) Urine Protein 3+ H (NEG-TRACE) MG/DL Urine Glucose (UA) NEG (NEG) MG/DL All other labs normal. Assessment and Plan (1) Traumatic retroperitoneal hemorrhage: Status: Acute Plan 61-year-old male patient presenting with a right kidney bleed following IR biopsy yesterday. Patient's blood count has dropped since yesterday and he will be receiving transfusion this morning. CT was reviewed and did reveal a retroperitoneal hematoma. Agree with monitoring blood count and transfusing as necessary. Would recommend urology consultation as well. Follow-up CT 24 hours, sooner p.r.n. Procedures Date of Service Date of Service: 05/30/21
[2021-05-30 10:16] LABS: Myeloperoxidase Antibody <1.0 AI; Proteinase 3 PR3 Antibodies <1.0 AI
[2021-05-30] MEDS: Desmopressin Acetate 20 MCG in 0.9 % Sodium Chloride 50 ML 100 MCG IV (10:30)
[2021-05-30] MEDS: amLODIPine Besylate 5 MG TABLET PO (10:59)
[2021-05-30] MEDS: Tamsulosin HCL 0.4 MG CAPSULE PO (10:59)
[2021-05-30] MEDS: Labetalol HCL 200 MG TABLET PO (11:00)
[2021-05-30] MEDS: 0.9 % Sodium Chloride 1,000 ML 100 ML IVCONT (11:00)
[2021-05-30 11:35] LABS: Anti Nuclear Antibody Screen NEGATIVE (NEGATIVE)
--- NOTE | 2021-05-30 13:47 | P.PNIM_ITS ---
Subjective Subjective Date of Service: 05/30/21 Interval History: The patient was seen and evaluated this morning Sitting in his chair, complaining of pain that started during nighttime in his back and abdomen Hemoglobin dropped to 7 blood pressure fairly controlled No reported other overnight events. Systemic review: No fever, chills with reported pain in his back and feeling weaker No chest pain, palpitation No shortness of breath or coughing No abdominal pain, nausea or vomiting No urinary symptoms No any rash or wounds Physical Exam Vital Signs: Vital Signs: Last Vital Signs Temp 97.7 F 05/30/21 13:14 Pulse 80 05/30/21 13:14 Resp 16 05/30/21 13:14 BP 131/76 05/30/21 13:14 Pulse Ox 99 05/30/21 11:50 Oxygen Flow Rate 4 05/27/21 02:07 BMI result Body Mass Index 21.2 Const: Other: Constitutional : Alert, oriented, not in distress Neck : Normal inspection, Supple Cardiovascular : RRR, S1 S2, no lower extremity edema Respiratory : Good bilateral air entry, no crackles, wheezes or rhonchi Gastrointestinal: soft, lax, Normal bowel sounds, Non tender Skin : Warm, Dry, mild tenderness over the area of biopsy Neurological : Alert & oriented x3, No focal deficit Objective Data Active Medications Acetaminophen (Acetaminophen 325 Mg Tablet) 650 mg PO Q6H PRN PRN Reason: Pain, Mild (Pain Scale 1-3) Amlodipine Besylate (Amlodipine Besylate 5 Mg Tablet) 5 mg PO DAILY [facility]; Protocol Last Admin: 05/30/21 10:59 Dose: 5 mg Documented by: PAM Sodium Chloride (Ns) 1,000 mls @ 100 mls/hr IVCONT .Q10H [facility] Last Admin: 05/30/21 11:00 Dose: 100 mls/hr Documented by: PAM Labetalol HCl (Labetalol Hcl 200 Mg Tablet) 200 mg PO BID [facility]; Protocol Last Admin: 05/30/21 11:00 Dose: 200 mg Documented by: PAM Melatonin (Melatonin 3 Mg Tablet) 6 mg PO BEDTIME PRN PRN Reason: insomnia Last Admin: 05/28/21 21:52 Dose: 6 mg Documented by: SERGIO Tamsulosin HCl (Tamsulosin Hcl 0.4 Mg Capsule) 0.4 mg PO DAILY [facility] Last Admin: 05/30/21 10:59 Dose: 0.4 mg Documented by: PAM Torsemide (Torsemide 20 Mg Tablet) 40 mg PO DAILY [facility]; Protocol Last Admin: 05/29/21 09:07 Dose: 40 mg Documented by: ANNA Labs CBC & Chem 7: 05/30/21 06:19 05/30/21 06:19 Labs: Laboratory Results - last 24 hr 05/27/21 05/27/21 05/29/21 13:01 13:01 16:02 MCV 94.2 MCH 31.1 MCHC 33.0 RDW 15.6 Plt Count 143 L MPV 11.6 Absolute Nucleated RBC 0.000 Nucleated RBC % (auto) 0.0 Anion Gap Estim Creat Clear Calc Estimated GFR Random Glucose Calcium Iron TIBC % Saturation Unsat Iron Binding TIFFANIE Screen NEGATIVE TIFFANIE Titer TNP TIFFANIE Titer 2 TNP TIFFANIE Titer 3 TNP TIFFANIE Pattern TNP TIFFANIE Pattern 2 TNP TIFFANIE Pattern 3 TNP Proteinase 3 (PR3) Ab <1.0 Myeloperoxidase Ab <1.0 Blood Type Antibody Screen Crossmatch 05/29/21 05/30/21 05/30/21 16:02 06:19 06:19 MCV 94.6 MCH 32.0 MCHC 33.8 RDW 15.9 Plt Count 143 L MPV 11.3 Absolute Nucleated RBC 0.000 Nucleated RBC % (auto) 0.0 Anion Gap 15 18 Estim Creat Clear Calc 9.1 9.6 Estimated GFR 7 8 Random Glucose 196 H D 94 D Calcium 8.5 8.5 Iron 52 TIBC 235 % Saturation 22 Unsat Iron Binding 183 TIFFANIE Screen TIFFANIE Titer TIFFANIE Titer 2 TIFFANIE Titer 3 TIFFANIE Pattern TIFFANIE Pattern 2 TIFFANIE Pattern 3 Proteinase 3 (PR3) Ab Myeloperoxidase Ab Blood Type Antibody Screen Crossmatch 05/30/21 07:36 MCV MCH MCHC RDW Plt Count MPV Absolute Nucleated RBC Nucleated RBC % (auto) Anion Gap Estim Creat Clear Calc Estimated GFR Random Glucose Calcium Iron TIBC % Saturation Unsat Iron Binding TIFFANIE Screen TIFFANIE Titer TIFFANIE Titer 2 TIFFANIE Titer 3 TIFFANIE Pattern TIFFANIE Pattern 2 TIFFANIE Pattern 3 Proteinase 3 (PR3) Ab Myeloperoxidase Ab Blood Type A Positive Antibody Screen NEGATIVE Crossmatch See Detail Assessment and Plan (1) Acute blood loss anemia: Status: Acute (2) Traumatic retroperitoneal hemorrhage: Status: Acute (3) Hyponatremia: Status: Acute (4) CALVIN (acute kidney injury): Status: Acute Plan ?61-year-old gentleman admitted with hypertensive emergency and acute kidney failure initially requiring Cardene drip, downgrade from ICU to medical floor. Acute blood loss anemia 2/2 dramatic retroperitoneal hematoma The patient developed hematoma at the site of kidney biopsy CT scan showed Small right subcapsular hematoma and large perinephric hematoma involving the right iliopsoas muscle and tracking into the pelvis To give 2 units of blood, 2 units FFP To give DDAVP Surgery consult Monitor H and H HTN emergency, resolved Decrease amlodipine Hold labetalol for now Discontinue spironolactone, and clonidine 2D echocardiogram showing chronic diastolic congestive heart failure Hold torsemide for now acute renal failure likely secondary to longstanding hypertension, unclear chronicity Ultrasound ruled out any obstruction Creatinine raising slowly to 7.1 Nephrology input appreciated Kidney biopsy done, pending pathology result Continue to monitor renal indices and urine output.? Non oliguric. F/u with Dr. Abraham as out pt after D/c? Hyponatremia Sodium of 130 this morning Secondary to kidney injury Continue to monitor, should improve with improvement of the kidney function DVT PPX SCDs Quality Stroke Does the patient have a stroke diagnosis?: No VTE Prior VTE?: No VTE Risk Level:: Medical - moderate - high VTE Device Contraindication: Treatment Not Indicated VTE Drug Contraindication: N/A - Med Ordered
--- NOTE | 2021-05-30 14:37 | PM.PNNEP ---
Subjective Subjective Date of Service: 05/30/21 Principal diagnosis: Pt s/p Kidney BX Interval history: The patient was seen and evaluated this morning In the bed complaining of pain that started during nighttime in his back and abdomen Hemoglobin dropped to 7 blood pressure fairly controlled Physical Exam Vital Signs: Vital Signs: Last Vital Signs Temp 97.7 F 05/30/21 13:14 Pulse 80 05/30/21 13:14 Resp 16 05/30/21 13:14 BP 131/76 05/30/21 13:14 Pulse Ox 99 05/30/21 11:50 Oxygen Flow Rate 4 05/27/21 02:07 BMI result Body Mass Index 21.2 Constitutional : Alert, oriented, not in distress Neck : Normal inspection, Supple Cardiovascular : RRR, S1 S2, no lower extremity edema Respiratory : Good bilateral air entry,? no crackles, wheezes or rhonchi Gastrointestinal:? soft, lax, Normal bowel sounds, Non tender Skin : Warm, Dry, mild tenderness over the area of biopsy Neurological : Alert & oriented x3, No focal deficit Objective Data Labs CBC & Chem 7: 05/30/21 06:19 05/30/21 06:19 Labs: Laboratory Results - last 24 hr 05/27/21 05/27/21 05/29/21 13:01 13:01 16:02 WBC 8.2 RBC 2.41 L Hgb 7.5 L Hct 22.7 L MCV 94.2 MCH 31.1 MCHC 33.0 RDW 15.6 Plt Count 143 L MPV 11.6 Absolute Nucleated RBC 0.000 Nucleated RBC % (auto) 0.0 Sodium Potassium Chloride Carbon Dioxide Anion Gap BUN Creatinine Estim Creat Clear Calc Estimated GFR Random Glucose Calcium Iron TIBC % Saturation Unsat Iron Binding TIFFANIE Screen NEGATIVE TIFFANIE Titer TNP TIFFANIE Titer 2 TNP TIFFANIE Titer 3 TNP TIFFANIE Pattern TNP TIFFANIE Pattern 2 TNP TIFFANIE Pattern 3 TNP Proteinase 3 (PR3) Ab <1.0 Myeloperoxidase Ab <1.0 Blood Type Antibody Screen Crossmatch 05/29/21 05/30/21 05/30/21 16:02 06:19 06:19 WBC 11.0 H RBC 2.22 L Hgb 7.1 L Hct 21.0 L* MCV 94.6 MCH 32.0 MCHC 33.8 RDW 15.9 Plt Count 143 L MPV 11.3 Absolute Nucleated RBC 0.000 Nucleated RBC % (auto) 0.0 Sodium 129 L 130 L Potassium 4.2 D 4.3 Chloride 91 L 92 L Carbon Dioxide 27 24 Anion Gap 15 18 BUN 79 H 84 H Creatinine 7.54 H* 7.18 H* Estim Creat Clear Calc 9.1 9.6 Estimated GFR 7 8 Random Glucose 196 H D 94 D Calcium 8.5 8.5 Iron 52 TIBC 235 % Saturation 22 Unsat Iron Binding 183 TIFFANIE Screen TIFFANIE Titer TIFFANIE Titer 2 TIFFANIE Titer 3 TIFFANIE Pattern TIFFANIE Pattern 2 TIFFANIE Pattern 3 Proteinase 3 (PR3) Ab Myeloperoxidase Ab Blood Type Antibody Screen Crossmatch 05/30/21 07:36 WBC RBC Hgb Hct MCV MCH MCHC RDW Plt Count MPV Absolute Nucleated RBC Nucleated RBC % (auto) Sodium Potassium Chloride Carbon Dioxide Anion Gap BUN Creatinine Estim Creat Clear Calc Estimated GFR Random Glucose Calcium Iron TIBC % Saturation Unsat Iron Binding TIFFANIE Screen TIFFANIE Titer TIFFANIE Titer 2 TIFFANIE Titer 3 TIFFANIE Pattern TIFFANIE Pattern 2 TIFFANIE Pattern 3 Proteinase 3 (PR3) Ab Myeloperoxidase Ab Blood Type A Positive Antibody Screen NEGATIVE Crossmatch See Detail Procedures Date of Service Date of Service: 05/30/21 Assessment & Plan Assessment and plan (1) CALVIN (acute kidney injury): Status: Acute Assessment and Plan: 1. Adv Renal Dysfunc: w/u in progress as still unlcear to what extent this is CALVIN on CKD vs adv CKD; sero ordered and will proceed with kidney to make definitive Dx and prognosis 2. HTN crisis: w/u to r/o 2ry causes sent; PATRIC r/o by doppler BP remains sub-optimal control--will need cont incr meds 3. HypoNa: d/t adv renal dysfunc 4. Anemia REC: D/c Aldactone F/u H/h again today and in AM - D/w medical team D/w Medical team earlier to give DDAVP Pt getting transfused Keep pt in house today No Uremic symptoms Will follow Bx report ? May start HD this admission F/u with Dr. Abraham as out pt after D/c? ?protect LUE forfuture AVF will follow with team (2) Hypertensive emergency: Status: Acute (3) Anemia: Status: Acute Time Spent With Patient Time: Total time spent is greater than 50% in coordination of care (as documented) at patient's floor/unit and/or counseling patient: Progress Note: Quality Stroke Does the patient have a stroke diagnosis?: No
[2021-05-30 15:40] LABS: Anion Gap 18 (12-20); Blood Urea Nitrogen 85 mg/dL (9-16); Carbon Dioxide 22 mmol/L (22-29); Chloride 94 mmol/L (96-108); Creatinine Clr Calc Pharmacy 9.5; Estimated Glomerular Filt Rate 8; Glucose Random 182 mg/dL (60-115); Potassium 4.9 mmol/L (3.3-5.1); Sodium 129 mmol/L (135-145)
[2021-05-30 15:54] LABS: Mean Corpuscular HGB Conc 33.3 g/dl (31.0-36.0); Mean Corpuscular Hemoglobin 32.1 pg (27.0-33.0); Mean Corpuscular Volume 96.3 fL (80.0-98.0); Mean Platelet Volume 11.9 fL (9.4-12.4); Platelet Count 130 X10*3/uL (160-400); Red Blood Count 2.18 X10*6/uL (4.60-5.80); Red Cell Distribution Width 15.9 % (11.0-16.0)
[2021-05-30 16:04] LABS: White Blood Count 11.3 X10*3/uL (4.8-10.8)
--- NOTE | 2021-05-30 23:06 | PC.NURSE ---
Documentation for blood transfusion was saved incorrectly. The vitals meant for 9:31pm was put for 9:34 and my ending transfusion time was to be for 10:57pm but ending vitals were saved for 9:31pm. the correct ending time vitals were bp: 182/101 left upper arm P:102 RR: 18
[2021-05-30] MEDS: Labetalol HCL 100 MG/20 ML VIAL 10 MG IVPUSH (23:28)
[2021-05-31] VITALS (12 sets, daily range): BP systolic 147–197; BP diastolic 72–104; PULSE 83–98; RESP 14–18; TEMP 35.7–37.1; O2SAT 98–100; BMI 23.3
[2021-05-31] MEDS: 0.9 % Sodium Chloride 1,000 ML 100 ML IVCONT (01:58)
--- NOTE | 2021-05-31 05:20 | PC.NURSE ---
Patient had multiple high blood pressures throughout the night. Overnight hospitalist notified and one time dose of IVP labetolol ordered and given at 23:28. BP came down slightly but later increased. Hospitalist notified again and hydrazine ordered and to be given.
[2021-05-31] MEDS: hydrALAZINE HCl 20 MG/ML VIAL 5 MG IVPUSH (05:26)
[2021-05-31 06:45] LABS: Hematocrit 23.3 % (42.0-52.0); Hemoglobin 7.7 g/dl (14.0-18.0); Mean Corpuscular Volume 96.7 fL (80.0-98.0); Mean Platelet Volume 10.6 fL (9.4-12.4); Platelet Count 148 X10*3/uL (160-400); Red Blood Count 2.41 X10*6/uL (4.60-5.80); Red Cell Distribution Width 15.5 % (11.0-16.0); White Blood Count 12.4 X10*3/uL (4.8-10.8)
[2021-05-31 07:11] LABS: Anion Gap 19 (12-20); Blood Urea Nitrogen 86 mg/dL (9-16); Carbon Dioxide 22 mmol/L (22-29); Chloride 96 mmol/L (96-108); Creatinine Clr Calc Pharmacy 10.6; Estimated Glomerular Filt Rate 8; Glucose Random 122 mg/dL (60-115); Potassium 4.3 mmol/L (3.3-5.1); Sodium 133 mmol/L (135-145)
--- NOTE | 2021-05-31 08:02 | MHC.CM.PN ---
Lisy Lester at [facility] [employer] on 05/29/21: I'm going to be completing a [employer] Presumptive Eligibility for this patient. He will have [employer] for 30 days, allowing him time to enroll in his employer's insurance or return to us with proof of income in order to fill out a full [employer] application. It will take 2-3 business days for the Presumptive?Eligibility application to get processed, so his coverage won't show until Tuesday or Tuesday of?next week, but it will be active with the effective date of 05/27/2021 to cover this visit.? Patient was in a procedure when I called, so I explained all of this information to his spouse Sudhakar. She will be stopping by today before leaving to get the approval letter for the temporary 30 day coverage under the Presumptive Eligibility application.?
[2021-05-31] MEDS: amLODIPine Besylate 10 MG TABLET PO (09:17)
--- NOTE | 2021-05-31 10:00 | PM.PNGS ---
Subjective Subjective Date of Service: 05/31/21 Interval history: Patient feels much improved today with decreased abdominal pain. He is able to move around and bend without increasing the discomfort. Physical Exam Vital Signs: Vital Signs: Last Vital Signs Temp 97.6 F 05/31/21 08:00 Pulse 98 05/31/21 08:00 Resp 18 05/31/21 08:00 BP 192/90 H 05/31/21 08:00 Pulse Ox 100 05/31/21 08:00 Oxygen Flow Rate 4 05/27/21 02:07 BMI result Body Mass Index 23.3 Const: General: comfortable and no acute distress Nutritional Appearance: well nourished Orientation/consciousness: patient oriented x3 Limitations: no limitations Resp: Effort & Inspection: normal respiratory effort GI: Other: Soft, nontender, normal bowel sounds Back/Spine/Pelvis: Other: Right flank dressing intact, no apparent ecchymosis Neuro: General: patient oriented x3 Extrem: General: Yes full ROM and Yes no pedal edema Objective Data Active Medications Acetaminophen (Acetaminophen 325 Mg Tablet) 650 mg PO Q6H PRN PRN Reason: Pain, Mild (Pain Scale 1-3) Amlodipine Besylate (Amlodipine Besylate 10 Mg Tablet) 10 mg PO DAILY [facility]; Protocol Sodium Chloride (Ns) 1,000 mls @ 100 mls/hr IVCONT .Q10H [facility] Last Admin: 05/31/21 01:58 Dose: 100 mls/hr Documented by: DAVID Labetalol HCl (Labetalol Hcl 200 Mg Tablet) 200 mg PO TID [facility]; Protocol Melatonin (Melatonin 3 Mg Tablet) 6 mg PO BEDTIME PRN PRN Reason: insomnia Last Admin: 05/28/21 21:52 Dose: 6 mg Documented by: SERGIO Tamsulosin HCl (Tamsulosin Hcl 0.4 Mg Capsule) 0.4 mg PO DAILY [facility] Last Admin: 05/30/21 10:59 Dose: 0.4 mg Documented by: PAM Torsemide (Torsemide 20 Mg Tablet) 40 mg PO DAILY [facility]; Protocol Last Admin: 05/29/21 09:07 Dose: 40 mg Documented by: ANNA Labs CBC & Chem 7: 05/31/21 05:56 05/31/21 05:56 Labs: Laboratory Results - last 24 hr 05/26/21 05/27/2105/27/22 22:45 05:31 13:01 Hgb 10.0 L 9.4 L MCV MCH MCHC RDW Plt Count MPV Absolute Nucleated RBC Nucleated RBC % (auto) Anion Gap Estim Creat Clear Calc Estimated GFR Random Glucose Calcium TIFFANIE Screen TIFFANIE Titer TIFFANIE Titer 2 TIFFANIE Titer 3 TIFFANIE Pattern TIFFANIE Pattern 2 TIFFANIE Pattern 3 Proteinase 3 (PR3) Ab <1.0 Myeloperoxidase Ab <1.0 Blood Type Antibody Screen Crossmatch 05/27/21 05/28/21 05/29/21 13:01 06:00 06:11 Hgb 9.0 L 8.4 L MCV MCH MCHC RDW Plt Count MPV Absolute Nucleated RBC Nucleated RBC % (auto) Anion Gap Estim Creat Clear Calc Estimated GFR Random Glucose Calcium TIFFANIE Screen NEGATIVE TIFFANIE Titer TNP TIFFANIE Titer 2 TNP TIFFANIE Titer 3 TNP TIFFANIE Pattern TNP TIFFANIE Pattern 2 TNP TIFFANIE Pattern 3 TNP Proteinase 3 (PR3) Ab Myeloperoxidase Ab Blood Type Antibody Screen Crossmatch 05/29/21 05/30/21 05/30/21 16:02 06:19 07:36 Hgb 7.5 L 7.1 L MCV MCH MCHC RDW Plt Count MPV Absolute Nucleated RBC Nucleated RBC % (auto) Anion Gap Estim Creat Clear Calc Estimated GFR Random Glucose Calcium TIFFANIE Screen TIFFANIE Titer TIFFANIE Titer 2 TIFFANIE Titer 3 TIFFANIE Pattern TIFFANIE Pattern 2 TIFFANIE Pattern 3 Proteinase 3 (PR3) Ab Myeloperoxidase Ab Blood Type A Positive Antibody Screen NEGATIVE Crossmatch See Detail 05/30/21 05/30/21 05/31/21 15:09 15:09 05:56 Hgb 7.0 L* 7.7 L MCV 96.3 96.7 MCH 32.1 32.0 MCHC 33.3 33.0 RDW 15.9 15.5 Plt Count 130 L 148 L MPV 11.9 10.6 Absolute Nucleated RBC 0.000 0.000 Nucleated RBC % (auto) 0.0 0.0 Anion Gap 18 Estim Creat Clear Calc 9.5 Estimated GFR 8 Random Glucose 182 H D Calcium 8.0 L TIFFANIE Screen TIFFANIE Titer TIFFANIE Titer 2 TIFFANIE Titer 3 TIFFANIE Pattern TIFFANIE Pattern 2 TIFFANIE Pattern 3 Proteinase 3 (PR3) Ab Myeloperoxidase Ab Blood Type Antibody Screen Crossmatch 05/31/21 05:56 Hgb MCV MCH MCHC RDW Plt Count MPV Absolute Nucleated RBC Nucleated RBC % (auto) Anion Gap 19 Estim Creat Clear Calc 10.6 Estimated GFR 8 Random Glucose 122 H Calcium 9.0 D TIFFANIE Screen TIFFANIE Titer TIFFANIE Titer 2 TIFFANIE Titer 3 TIFFANIE Pattern TIFFANIE Pattern 2 TIFFANIE Pattern 3 Proteinase 3 (PR3) Ab Myeloperoxidase Ab Blood Type Antibody Screen Crossmatch Procedures Date of Service Date of Service: 05/31/21 Progress Note: A&P Assessment and plan (1) Acute blood loss anemia: Status: Acute (2) Traumatic retroperitoneal hemorrhage: Status: Acute (3) CALVIN (acute kidney injury): Status: Acute Plan 61-year-old male patient status post right kidney biopsy in IR with resulting retroperitoneal hematoma. Patient feels much improved today with marked decrease in his abdominal pain. H&H appears stable following transfusion yesterday. Urine appears clear without blood, BUN and creatinine remain elevated. No surgical intervention recommended. Fall Risk Details Current Medications: Current Medications Acetaminophen (Acetaminophen 325 Mg Tablet) 650 mg PO Q6H PRN PRN Reason: Pain, Mild (Pain Scale 1-3) Amlodipine Besylate (Amlodipine Besylate 10 Mg Tablet) 10 mg PO DAILY [facility]; Protocol Sodium Chloride (Ns) 1,000 mls @ 100 mls/hr IVCONT .Q10H [facility] Last Admin: 05/31/21 01:58 Dose: 100 mls/hr Documented by: Labetalol HCl (Labetalol Hcl 200 Mg Tablet) 200 mg PO TID [facility]; Protocol Melatonin (Melatonin 3 Mg Tablet) 6 mg PO BEDTIME PRN PRN Reason: insomnia Last Admin: 05/28/21 21:52 Dose: 6 mg Documented by: Tamsulosin HCl (Tamsulosin Hcl 0.4 Mg Capsule) 0.4 mg PO DAILY [facility] Last Admin: 05/30/21 10:59 Dose: 0.4 mg Documented by: Torsemide (Torsemide 20 Mg Tablet) 40 mg PO DAILY [facility]; Protocol Last Admin: 05/29/21 09:07 Dose: 40 mg Documented by: Time Spent With Patient Time: Total time spent is greater than 50% in coordination of care (as documented) at patient's floor/unit and/or counseling patient: Quality Stroke Does the patient have a stroke diagnosis?: No VTE Prior VTE?: No VTE Risk Level:: Medical - moderate - high VTE Device Contraindication: Treatment Not Indicated VTE Drug Contraindication: N/A - Med Ordered
--- NOTE | 2021-05-31 11:07 | HO.PM.IMPN ---
Subjective Subjective Date of Service: 05/31/21 Interval History: The patient was seen and evaluated this morning Abdominal and back pain improved significantly Hemoglobin increased to 7.7 after 2 units transfusion blood pressure significantly elevated overnight and this morning No reported other overnight events. Systemic review: No fever, chills with reported pain has improved No chest pain, palpitation No shortness of breath or coughing No abdominal pain, nausea or vomiting No urinary symptoms No any rash or wounds Physical Exam Vital Signs: Vital Signs: Last Vital Signs Temp 97.6 F 05/31/21 08:00 Pulse 98 05/31/21 08:00 Resp 18 05/31/21 08:00 BP 192/90 H 05/31/21 08:00 Pulse Ox 100 05/31/21 08:00 Oxygen Flow Rate 4 05/27/21 02:07 BMI result Body Mass Index 23.3 Const: Other: Constitutional : Alert, oriented, not in distress Neck : Normal inspection, Supple Cardiovascular : RRR, S1 S2, no lower extremity edema Respiratory : Good bilateral air entry, no crackles, wheezes or rhonchi Gastrointestinal: soft, lax, Normal bowel sounds, Non tender Skin : Warm, Dry, no more tenderness over the area of biopsy Neurological : Alert & oriented x3, No focal deficit Objective Data Active Medications Acetaminophen (Acetaminophen 325 Mg Tablet) 650 mg PO Q6H PRN PRN Reason: Pain, Mild (Pain Scale 1-3) Amlodipine Besylate (Amlodipine Besylate 10 Mg Tablet) 10 mg PO DAILY [facility]; Protocol Labetalol HCl (Labetalol Hcl 200 Mg Tablet) 200 mg PO TID [facility]; Protocol Melatonin (Melatonin 3 Mg Tablet) 6 mg PO BEDTIME PRN PRN Reason: insomnia Last Admin: 05/28/21 21:52 Dose: 6 mg Documented by: SERGIO Tamsulosin HCl (Tamsulosin Hcl 0.4 Mg Capsule) 0.4 mg PO DAILY NEO Last Admin: 05/30/21 10:59 Dose: 0.4 mg Documented by: PAM Torsemide (Torsemide 20 Mg Tablet) 40 mg PO DAILY [facility]; Protocol Last Admin: 05/29/21 09:07 Dose: 40 mg Documented by: ANNA Labs CBC & Chem 7: 05/31/21 05:56 05/31/21 05:56 Labs: Laboratory Results - last 24 hr 05/27/21 05/30/21 05/30/21 13:01 07:36 15:09 MCV 96.3 MCH 32.1 MCHC 33.3 RDW 15.9 Plt Count 130 L MPV 11.9 Absolute Nucleated RBC 0.000 Nucleated RBC % (auto) 0.0 Anion Gap Estim Creat Clear Calc Estimated GFR Random Glucose Calcium TIFFANIE Screen NEGATIVE TIFFANIE Titer TNP TIFFANIE Titer 2 TNP TIFFANIE Titer 3 TNP TIFFANIE Pattern TNP TIFFANIE Pattern 2 TNP TIFFANIE Pattern 3 TNP Blood Type A Positive Antibody Screen NEGATIVE Crossmatch See Detail 05/30/21 05/31/21 05/31/21 15:09 05:56 05:56 MCV 96.7 MCH 32.0 MCHC 33.0 RDW 15.5 Plt Count 148 L MPV 10.6 Absolute Nucleated RBC 0.000 Nucleated RBC % (auto) 0.0 Anion Gap 18 19 Estim Creat Clear Calc 9.5 10.6 Estimated GFR 8 8 Random Glucose 182 H D 122 H Calcium 8.0 L 9.0 D TIFFANIE Screen TIFFANIE Titer TIFFANIE Titer 2 TIFFANIE Titer 3 TIFFANIE Pattern TIFFANIE Pattern 2 TIFFANIE Pattern 3 Blood Type Antibody Screen Crossmatch Assessment and Plan (1) Acute blood loss anemia: Status: Acute (2) Traumatic retroperitoneal hemorrhage: Status: Acute (3) Hyponatremia: Status: Acute (4) Hypertensive emergency: Status: Acute (5) CALVIN (acute kidney injury): Status: Acute Plan ?61-year-old gentleman admitted with hypertensive emergency and acute kidney failure initially requiring Cardene drip, downgrade from ICU to medical floor. Acute blood loss anemia 2/2 dramatic retroperitoneal hematoma The patient developed hematoma at the site of kidney biopsy CT scan showed Small right subcapsular hematoma and large perinephric hematoma involving the right iliopsoas muscle and tracking into the pelvis Hemoglobin improved to 7.7 after 2 units of blood, 2 units FFP Received DDAVP To give another unit of blood today Surgery input appreciated Monitor H and H HTN emergency Blood pressure readings increased significantly overnight Increase amlodipine to 10 mg daily Restart labetalol 200 mg t.i.d. Discontinue spironolactone, and clonidine 2D echocardiogram showing chronic diastolic congestive heart failure Hold torsemide for now acute renal failure likely secondary to longstanding hypertension, unclear chronicity Ultrasound ruled out any obstruction Creatinine stable around 7 with BUN around 86 Discontinue IVF Nephrology input appreciated Kidney biopsy done, pending pathology result Continue to monitor renal indices and urine output.? Non oliguric. F/u with Dr. Abraham as out pt after D/c? Hyponatremia Sodium improved to 133 Secondary to kidney injury DC IVF Continue to monitor, should improve with improvement of the kidney function DVT PPX SCDs Quality Stroke Does the patient have a stroke diagnosis?: No VTE Prior VTE?: No VTE Risk Level:: Medical - moderate - high VTE Device Contraindication: Treatment Not Indicated VTE Drug Contraindication: N/A - Med Ordered
[2021-05-31] MEDS: Tamsulosin HCL 0.4 MG CAPSULE PO (11:18)
[2021-05-31] MEDS: Labetalol HCL 200 MG TABLET PO ×3 (11:18→20:01)
--- NOTE | 2021-05-31 13:57 | P.PNNP_ITS ---
Subjective Subjective Date of Service: 05/31/21 Principal diagnosis: Pt s/p Kidney BX Interval history: The patient was seen and evaluated this morning Abdominal and back pain improved significantly Hemoglobin increased to 7.7 after 2 units transfusion Anxious to go home but agrees to stay overnight at my request to make sure he does not have further bleeding BP is better now No Hematuria Physical Exam 2 Vital Signs: Vital Signs: Last Vital Signs Temp 98.4 F 05/31/21 13:49 Pulse 92 05/31/21 13:49 Resp 18 05/31/21 13:49 BP 155/84 H 05/31/21 13:49 Pulse Ox 99 05/31/21 11:40 Oxygen Flow Rate 4 05/27/21 02:07 BMI result Body Mass Index 23.3 Constitutional : Alert, oriented, not in distress Neck : Normal inspection, Supple Cardiovascular : RRR, S1 S2, no lower extremity edema Respiratory : Good bilateral air entry,? no crackles, wheezes or rhonchi Gastrointestinal:? soft, lax, Normal bowel sounds, Non tender Skin : Warm, Dry, no more tenderness over the area of biopsy Neurological : Alert & oriented x3, No focal deficit Objective Data Labs CBC & Chem 7: 05/31/21 05:56 05/31/21 05:56 Labs: Laboratory Results - last 24 hr 05/30/21 05/30/21 05/30/21 07:36 15:09 15:09 WBC 11.3 H RBC 2.18 L Hgb 7.0 L* Hct 21.0 L* MCV 96.3 MCH 32.1 MCHC 33.3 RDW 15.9 Plt Count 130 L MPV 11.9 Absolute Nucleated RBC 0.000 Nucleated RBC % (auto) 0.0 Sodium 129 L Potassium 4.9 Chloride 94 L Carbon Dioxide 22 Anion Gap 18 BUN 85 H Creatinine 7.26 H* Estim Creat Clear Calc 9.5 Estimated GFR 8 Random Glucose 182 H D Calcium 8.0 L Blood Type A Positive Antibody Screen NEGATIVE Crossmatch See Detail 05/31/21 05/31/21 05:56 05:56 WBC 12.4 H RBC 2.41 L Hgb 7.7 L Hct 23.3 L MCV 96.7 MCH 32.0 MCHC 33.0 RDW 15.5 Plt Count 148 L MPV 10.6 Absolute Nucleated RBC 0.000 Nucleated RBC % (auto) 0.0 Sodium 133 L Potassium 4.3 Chloride 96 Carbon Dioxide 22 Anion Gap 19 BUN 86 H Creatinine 7.01 H* Estim Creat Clear Calc 10.6 Estimated GFR 8 Random Glucose 122 H Calcium 9.0 D Blood Type Antibody Screen Crossmatch Procedures Date of Service Date of Service: 05/31/21 Assessment & Plan Assessment and plan (1) CALVIN (acute kidney injury): Status: Acute (2) CHF (congestive heart failure): Status: Acute (3) Hypertensive emergency: Status: Acute (4) Hyponatremia: Status: Acute (5) Acute blood loss anemia: Status: Acute Plan 1. Adv Renal Dysfunc: w/u in progress as still unlcear to what extent this is CALVIN on CKD vs adv CKD; sero ordered and will proceed with kidney to make definitive Dx and prognosis 2. HTN crisis: w/u to r/o 2ry causes sent; PATRIC r/o by doppler BP remains sub-optimal control--will need cont incr meds 3. HypoNa: d/t adv renal dysfunc 4. Anemia REC: Torsemide held- Will suggest lowre dose as out pt 20 mg daily when he gets d/c'd given CKD F/u H/h in AM - D/w medical team No Uremic symptoms We can see if we can get preliminary Bx report in AM Renal func is stable - Based on chronicity on BX he needs dialysis modality edu cation and plan for an access Plan to d/c in AM if stable F/u with Dr. Abraham as out pt after D/c?in 1-2 weeks - We will arrange protect LUE for future AVF d/w the medical team will follow with team Time Spent With Patient Time: Total time spent is greater than 50% in coordination of care (as documented) at patient's floor/unit and/or counseling patient: Progress Note: Quality Stroke Does the patient have a stroke diagnosis?: No
[2021-05-31 14:41] LABS: Hematocrit 23.9 % (42.0-52.0); Hemoglobin 7.9 g/dl (14.0-18.0); Mean Corpuscular HGB Conc 33.1 g/dl (31.0-36.0); Mean Corpuscular Hemoglobin 32.2 pg (27.0-33.0); Mean Corpuscular Volume 97.6 fL (80.0-98.0); Mean Platelet Volume 10.4 fL (9.4-12.4); Platelet Count 150 X10*3/uL (160-400); Red Blood Count 2.45 X10*6/uL (4.60-5.80); Red Cell Distribution Width 15.5 % (11.0-16.0); White Blood Count 11.7 X10*3/uL (4.8-10.8)
[2021-05-31 15:03] LABS: Anion Gap 18 (12-20); Blood Urea Nitrogen 86 mg/dL (9-16); Calcium 8.9 mg/dL (8.4-10.2); Carbon Dioxide 24 mmol/L (22-29); Chloride 96 mmol/L (96-108); Creatinine Clr Calc Pharmacy 10.6; Estimated Glomerular Filt Rate 8; Glucose Random 105 mg/dL (60-115); Potassium 4.5 mmol/L (3.3-5.1); Sodium 133 mmol/L (135-145)
--- NOTE | 2021-05-31 19:56 | PC.NURSE ---
Pt anxious, requesting to leave AMA , stated that he wants to go home for one day and come back tomorrow. Pt educated on the risks going AMA, Dr Kellogg at the bedside for this request, supervisor boat outfitting Sandra Page notified .
[2021-05-31] MEDS: Acetaminophen 325 MG TABLET 650 MG PO (21:26)
[2021-06-01] MEDS: Melatonin 3 MG TABLET 6 MG PO (00:01)
[2021-06-01 03:23] VITALS: PULSE 99; RESP 17; TEMP 37.1; O2SAT 93
[2021-06-01 04:19] VITALS: BP 160/85
[2021-06-01 04:37] LABS: Folate 4.9 ng/mL (> or = 4.0); Vitamin B12 700 pg/mL (200-900)
[2021-06-01 05:59] LABS: Hematocrit 25.6 % (42.0-52.0); Hemoglobin 8.5 g/dl (14.0-18.0); Mean Corpuscular HGB Conc 33.2 g/dl (31.0-36.0); Mean Corpuscular Hemoglobin 32.3 pg (27.0-33.0); Mean Corpuscular Volume 97.3 fL (80.0-98.0); Mean Platelet Volume 10.3 fL (9.4-12.4); Platelet Count 158 X10*3/uL (160-400); Red Blood Count 2.63 X10*6/uL (4.60-5.80); Red Cell Distribution Width 15.2 % (11.0-16.0); White Blood Count 12.1 X10*3/uL (4.8-10.8)
[2021-06-01 06:18] LABS: Anion Gap 19 (12-20); Blood Urea Nitrogen 88 mg/dL (9-16); Calcium 9.3 mg/dL (8.4-10.2); Carbon Dioxide 23 mmol/L (22-29); Chloride 96 mmol/L (96-108); Creatinine Clr Calc Pharmacy 10.3; Estimated Glomerular Filt Rate 8; Glucose Random 125 mg/dL (60-115); Potassium 4.5 mmol/L (3.3-5.1); Sodium 133 mmol/L (135-145)
[2021-06-01 07:32] VITALS: BP 145/62; PULSE 88; RESP 18; TEMP 36.9; O2SAT 98
[2021-06-01] MEDS: amLODIPine Besylate 10 MG TABLET PO (11:24)
[2021-06-01] MEDS: Acetaminophen 325 MG TABLET 650 MG PO (11:24)
[2021-06-01] MEDS: Labetalol HCL 200 MG TABLET PO ×2 (11:25→12:24)
[2021-06-01] MEDS: Tamsulosin HCL 0.4 MG CAPSULE PO (11:25)
[2021-06-01 11:28] VITALS: BP 170/98; PULSE 96; RESP 18; TEMP 36.9; O2SAT 100
[2021-06-01 11:57] LABS: IgA 120 mg/dL (47-310); IgG 1084 mg/dL (600-1640); IgM 38 mg/dL (50-300)
--- NOTE | 2021-06-01 11:57 | PM.PNNEP ---
Subjective Subjective Date of Service: 06/01/21 Principal diagnosis: Pt s/p Kidney BX Interval history: Seen and examined,events noted Physical Exam Vital Signs: Vital Signs: Last Vital Signs Temp 98.4 F 06/01/21 11:28 Pulse 96 06/01/21 11:28 Resp 18 06/01/21 11:28 BP 170/98 H 06/01/21 11:28 Pulse Ox 100 06/01/21 11:28 Oxygen Flow Rate 4 05/27/21 02:07 BMI result Body Mass Index 23.3 Const: General: no acute distress, alert and awake Eyes: Sclerae: sclerae normal EOM: EOMs intact bilaterally Neck: Neck: Yes no lymphadenopathy, Yes trachea midline and Yes supple Resp: Effort & Inspection: normal respiratory effort and no respiratory distress Auscultation: clear to auscultation bilaterally Cardio: Rate: regular rate Rhythm: regular rhythm Heart sounds: no gallops, no murmurs and no rubs GI: Palpation (GI): Soft to palpation and Other GI palpation findings present ( Nontender) Auscultation: normal bowel sounds Extrem: General: Yes no pedal edema, No clubbing and No cyanosis Objective Data Labs CBC & Chem 7: 06/01/21 05:42 06/01/21 05:42 Labs: Laboratory Results - last 24 hr 05/29/21 05/30/21 05/31/21 16:02 07:36 14:23 WBC 11.7 H RBC 2.45 L Hgb 7.9 L Hct 23.9 L MCV 97.6 MCH 32.2 MCHC 33.1 RDW 15.5 Plt Count 150 L MPV 10.4 Absolute Nucleated RBC 0.000 Nucleated RBC % (auto) 0.0 Sodium Potassium Chloride Carbon Dioxide Anion Gap BUN Creatinine Estim Creat Clear Calc Estimated GFR Random Glucose Calcium Vitamin B12 700 Folate 4.9 Blood Type A Positive Antibody Screen NEGATIVE Crossmatch See Detail 05/31/21 06/01/21 06/01/21 14:23 05:42 05:42 WBC 12.1 H RBC 2.63 L Hgb 8.5 L Hct 25.6 L MCV 97.3 MCH 32.3 MCHC 33.2 RDW 15.2 Plt Count 158 L MPV 10.3 Absolute Nucleated RBC 0.000 Nucleated RBC % (auto) 0.0 Sodium 133 L 133 L Potassium 4.5 4.5 Chloride 96 96 Carbon Dioxide 24 23 Anion Gap 18 19 BUN 86 H 88 H Creatinine 7.01 H* 7.18 H* Estim Creat Clear Calc 10.6 10.3 Estimated GFR 8 8 Random Glucose 105 125 H Calcium 8.9 9.3 Vitamin B12 Folate Blood Type Antibody Screen Crossmatch Procedures Date of Service Date of Service: 06/01/21 Assessment & Plan Assessment and plan (1) CALVIN (acute kidney injury): Status: Acute (2) CHF (congestive heart failure): Status: Acute (3) Hypertensive emergency: Status: Acute (4) Hyponatremia: Status: Acute (5) Acute blood loss anemia: Status: Acute Plan 1. Adv Renal Dysfunc: w/u in progress as still unlcear to what extent this is CALVIN on CKD vs adv CKD; sero ordered thus far all neg or normal s/pkidney Bx tuesday---noprelim result back yet ( I called and LM with patho) 2. HTN crisis: w/u to r/o 2ry causes sent; PATRIC r/o by doppler BP remains sub-optimal control--but trending better 3. HypoNa: resolved 4. Anemia: Hb incr after xfusion REC: ok to d/c today and I will arrange outpt prep for ESRD and track down Bx; incr labtaolo 400 bid and start torsemide 40 qd; get outpt labs for and I will see inoffice on Tuesday or next tuesday Time Spent With Patient Time: Total time spent is greater than 50% in coordination of care (as documented) at patient's floor/unit and/or counseling patient: Progress Note: Quality Stroke Does the patient have a stroke diagnosis?: No
--- NOTE | 2021-06-01 12:06 | P.DS_ITS ---
DS: Providers Provider Date of Service: 06/01/21 Date of admission: 05/27/21 02:07 Primary care physician: None Physician Consults: 05/27/21 08:16 Consult to Nephrology Routine Consulting Provider: [facility] Reason for consultation: Acute renal failure Has provider been notified: No 05/30/21 09:17 Consult to General Surgery Routine Consulting Provider: Elgin Fleming Reason for consultation: intraabdominal hematoma post renal biopsy. DS: Diagnosis Discharge Diagnosis (1) CALVIN (acute kidney injury): Status: Acute (2) CHF (congestive heart failure): Status: Acute (3) Hypertensive emergency: Status: Acute (4) Hyponatremia: Status: Acute (5) Acute blood loss anemia: Status: Acute DS: Summary Hospital Course Hospital Course: admission note HPI by ICU provider This is a 61-year-old male with history of tobacco use and alcohol use (last drink 3 weeks ago)? with no other? known past medical history, and to the emergency room? with anxiety. ? Patient reported? on Tuesday he had ?stomach f qu[place]?? with multiple episodes of nausea and vomiting.? He states since Tuesday he has felt his anxiety getting worse, with ?valadez closing in?.? In the ED,? the patient was noted to be severely hypertensive,? BP 250/155.? He denied chest pain, palpitation, dizziness, headache.? Laboratory data was significant for? sodium 133, chloride 92, BUN 56, creatinine 6.21,? troponin 236 Toxicology was negative.?Chest CT: ?Cardiomegaly with pulmonary interstitial edema? ED physician discussed with cardiology her findings from bedside echo, significant thickening of LV, as well as EKG abnormalities, cardiology does not believe to be acute. Recommends blood pressure management.? Patient received [id number], hydralazine 10, Lasix 60, ativan 1 po, and benadryl while in ED. Patient blood pressure cont to be elevated >200s. Required Nitro drip initiation? Patient will be admitted to the ICU for management of hypertensive emergency Hospital course the patient was admitted to ICU for treatment of?HTN emergency started on nicardipine drip with fair response. Evaluated by Nephrology team who recommended starting amlodipine, labetalol, torsemide and consider possible clonidine or hydralazine if needed. Blood pressure was fluctuating in the 1st 2 days on the p.o. medications what remained on the higher side. 2D echocardiogram showing chronic diastolic congestive heart failure. His blood work was consistent with acute renal failure of unclear chronicity. Ultrasound ruled out any possible obstruction. Creatinine remained around 7 with BUN increasing to 80s. Patient was able to pass urine with no reported or degree urea or confusion.Kidney biopsy was done and results still pending. Nephrology suggested starting dialysis while inpatient but the patient preferred not to do that and to go back home and wait for the next few days before starting dialysis if needed. He will follow-up with doctor Abraham in the office for the results of kidney biopsy and dialysis planning. After having kidney biopsy it was noted that his hemoglobin dropped to 7.5 on top of his chronic anemia at time of presentation between 9-10. Found to have acute blood loss anemia 2/[address] scan showed? Small right subcapsular hematoma and large perinephric hematoma involving the right iliopsoas muscle and tracking into the pelvis. Hemoglobin improved to 8.5 after 3 units of blood, 2 units FFP and usage of DDAVP. noticed to have Hyponatremia at time of presentation which has improved from 128-133 at the day of discharge. Discharge plan Your kidney function has been stable for the last 2 days. We discussed starting dialysis while inpatient but you would prefer to follow-up as outpatient with the kidney doctor. Start amlodipine, labetalol and torsemide as prescribed Check your blood pressure 3 times daily for the next week and report readings to doctor Abraham To follow-up with doctor Abraham office as scheduled To follow-up on the biopsy results. Come back to the hospital for any difficulty breathing, decreased urine output or high blood pressure readings to repeat CBC and BMP as outpatient Time Spent with Patient Time attestation: Total time spent providing and/or coordinating discharge services: Discharge coordination time: Greater than 30 minutes Quality: Stroke Does the patient have a stroke diagnosis?: No Physical Exam Vital Signs: Vital Signs: Last Vital Signs Temp 98.4 F 06/01/21 11:28 Pulse 96 06/01/21 11:28 Resp 18 06/01/21 11:28 BP 170/98 H 06/01/21 11:28 Pulse Ox 100 06/01/21 11:28 Oxygen Flow Rate 4 05/27/21 02:07 BMI result Body Mass Index 23.3 Const: Other: Constitutional : Alert, oriented, not in distress Neck : Normal inspection, Supple Cardiovascular : RRR, S1 S2, no lower extremity edema Respiratory : Good bilateral air entry, no crackles, wheezes or rhonchi Gastrointestinal: soft, lax, Normal bowel sounds, Non tender Skin : Warm, Dry, no more tenderness over the area of biopsy Neurological : Alert & oriented x3, No focal deficit DS: Data Data Completed and Pending Pending studies at discharge: Pending at discharge 05/29/21 11:15 Surgical Path [Surgical] [PTH] Routine Labs on day of discharge: Laboratory Results - last 24 hr 05/27/21 05/29/21 05/30/21 13:01 16:02 07:36 WBC RBC Hgb Hct MCV MCH MCHC RDW Plt Count MPV Absolute Nucleated RBC Nucleated RBC % (auto) Sodium Potassium Chloride Carbon Dioxide Anion Gap BUN Creatinine Estim Creat Clear Calc Estimated GFR Random Glucose Calcium Vitamin B12 700 Folate 4.9 IgG Total 1084 IgA Total 120 IgM 38 L NATO Interpretation SEE NOTE Blood Type A Positive Antibody Screen NEGATIVE Crossmatch See Detail 05/31/21 05/31/21 06/01/21 14:23 14:23 05:42 WBC 11.7 H 12.1 H RBC 2.45 L 2.63 L Hgb 7.9 L 8.5 L Hct 23.9 L 25.6 L MCV 97.6 97.3 MCH 32.2 32.3 MCHC 33.1 33.2 RDW 15.5 15.2 Plt Count 150 L 158 L MPV 10.4 10.3 Absolute Nucleated RBC 0.000 0.000 Nucleated RBC % (auto) 0.0 0.0 Sodium 133 L Potassium 4.5 Chloride 96 Carbon Dioxide 24 Anion Gap 18 BUN 86 H Creatinine 7.01 H* Estim Creat Clear Calc 10.6 Estimated GFR 8 Random Glucose 105 Calcium 8.9 Vitamin B12 Folate IgG Total IgA Total IgM NATO Interpretation Blood Type Antibody Screen Crossmatch 06/01/21 05:42 WBC RBC Hgb Hct MCV MCH MCHC RDW Plt Count MPV Absolute Nucleated RBC Nucleated RBC % (auto) Sodium 133 L Potassium 4.5 Chloride 96 Carbon Dioxide 23 Anion Gap 19 BUN 88 H Creatinine 7.18 H* Estim Creat Clear Calc 10.3 Estimated GFR 8 Random Glucose 125 H Calcium 9.3 Vitamin B12 Folate IgG Total IgA Total IgM NATO Interpretation Blood Type Antibody Screen Crossmatch Discharge Plan Discharge Patient Disposition: Home, Self-Care Discharge Diagnosis: acute kidney injury Malignant hypertension Blood-loss anemia Referrals: Physician,None [Primary Care Provider] - 1 Week Discharge Medications: New torsemide 20 mg Tablet 40 mg PO DAILY 30 Days Qty: 60 0RF Protocol: Hold for SBP< HOLD for SBP < : 90 tamsulosin 0.4 mg Capsule 0.4 mg PO DAILY 30 Days Qty: 30 0RF amlodipine 10 mg Tablet 10 mg PO DAILY 30 Days Qty: 30 0RF Protocol: Hold for SBP< HOLD for SBP < : 90 labetalol 200 mg Tablet 400 mg PO BID 30 Days Qty: 120 0RF Protocol: Hold for SBP/HR < HOLD for SBP < : 90 HOLD for HR < : 60 Discharge Orders: Discharge Order (Routine); Ordered 06/01/21 Ordered By: Wallace Mullins Diet: low salt diet Activity on Discharge: As tolerated Stand Alone Forms: Patient Portal Discharge page, Work/School Release Other Ambulatory Orders: Basic Metabolic Panel (Routine) Timeframe: 3 Days Facility: [facility] - Location: Laboratory Ordered By: Wallace Mullins Complete Blood Count no Diff (Routine) Timeframe: 3 Days Facility: [facility] - Location: Laboratory Ordered By: Wallace Mullins Care Plan Goals: Read below Health Concerns: Read below Plan of Treatment: Read below Assessment: you were admitted to the hospital for evaluation of significantly elevated blood pressure readings associated with acute kidney injury. Your blood pressure was controlled and brought down with multiple medications as you were evaluated by kidney doctor. you had a kidney biopsy and developed bleeding at the side of the biopsy after that with drop in your hemoglobin requiring blood transfusion with fair response. Your kidney function has been stable for the last 2 days. We discussed starting dialysis while inpatient but you would prefer to follow-up as outpatient with the kidney doctor. Start amlodipine, labetalol and torsemide as prescribed Check your blood pressure 3 times daily for the next week and report readings to doctor Jarad To follow-up with doctor Jarad office as scheduled To follow-up on the biopsy results. Come back to the hospital for any difficulty breathing, decreased urine output or high blood pressure readings to repeat CBC and BMP as outpatient
[2021-06-01] MEDS: Torsemide 20 MG TABLET 40 MG PO (12:24)
--- NOTE | 2021-06-01 12:46 | MHC.CM.PN ---
Male 61 S/P Renal biopsy discharged today home self care. He has arranged for transportation home. Financial consult result 30 days temporary insurance. The insurance will cover this visit. Patient to obtain coverage thru his employer. Financial will work with him to obtain insurance, if he is not eligible thru work. Patient and are aware. Insurance documentation was provided by [employer] water main pipe layer.
[2021-06-01 13:48] VITALS: BP 138/74
[2021-06-02 09:01] LABS: Kappa Light Chain, Free Serum 100.3 mg/L (3.3-19.4); Lambda Light Chain, Free Serum 66.9 mg/L (5.7-26.3)
== END 2021-06-01 13:50 | disposition home or self-care (01) | DRG 305 ==
LOC: HO.ED 05-27 01:30 → HO.EDOVER 05-27 02:14 → HO.ICU 05-27 02:20 → HO.IMC 05-28 19:04
PROVIDERS: Internal Medicine Nephrology; Internal Medicine Pulmonary Disease; Radiology Diagnostic Radiology; Registered Nurse Community Health; Admitting Provider Internal Medicine; Emergency Provider Student in an Organized Health Care Education/Training Program; Visit Provider Student in an Organized Health Care Education/Training Program
PROC: 0TB03ZX Excision of Right Kidney, Percutaneous Approach, Diagnostic (ICD-10-PCS; principal; 2021-05-29 10:00)
DX: I16.1 Hypertensive emergency (principal); E44.1 Mild protein-calorie malnutrition; N17.9 Acute kidney failure, unspecified; I50.32 Chronic diastolic (congestive) heart failure; N99.820 Postprocedural hemorrhage of a genitourinary system organ or structure following a genitourinary system procedure; D62 Acute posthemorrhagic anemia; E87.1 Hypo-osmolality and hyponatremia; I11.0 Hypertensive heart disease with heart failure; F41.9 Anxiety disorder, unspecified; Z68.23 Body mass index [BMI] 23.0-23.9, adult; Z20.822 Contact with and (suspected) exposure to COVID-19; Z79.899 Other long term (current) drug therapy
CPT/HCPCS: 36415; 50200; 71250; 74176; 77012; 80048; 80053; 80076; 80143; 80179; 80307; 81001; 82043; 82077; 82607; 82746; 82784; 82947; 83521; 83540; 83735; 84100; 84156; 84443; 84484; 85025; 85027; 85379; 85610; 86021; 86038; 86039; 86160; 86334; 86704; 86706; 86803; 86850; 86900; 86901; 86923; 87340; 87635; 88300; 88305; 88313; 88346; 88348; 88350; 93005; 93306; 93975; 96374; 96375; 96376; 99024; 99152; 99153; 99285; J0131; J1200; J1940; J2060; J2597; P9016; P9017